=== PATIENT | female | born 1955 | race Caucasian/White ===

== ENCOUNTER 2020-10-31 12:09 | Outpatient (REF) | payer MEDICARE, SELFPAY ==
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
== END 2020-10-31 12:10 | disposition home or self-care (01) ==
LOC: HO.XRAY 12:09
PROVIDERS: Visit Provider Internal Medicine
DX: M25.511 Pain in right shoulder (principal)
CPT/HCPCS: 73030

== ENCOUNTER 2020-12-13 07:58 | Outpatient (REF) | payer MEDICARE, SELFPAY ==
--- NOTE | 2020-12-13 08:06 | MM_ITS ---
EXAMINATION: BONE DENSITOMETRY CLINICAL INDICATION: L1 vertebral fracture and right fibular fracture. COMPARISON: None (current study represents initial baseline exam). TECHNIQUE: Using a [employer] DXA System (software version: 13.1) manufactured by [employer], dual-energy x-ray absorptiometry was performed of the lumbar spine and left hip. The images are of good technical quality. Summary results are attached. FINDINGS: AP SPINE L2-L4 (excluding L1): The data of L1-L4 has been changed to exclude the L1 vertebral body, because degenerative changes at this level may cause overestimation of lumbar spine density. BMD 1.034 g/cm2, Z-score -0.5, T-score -1.4, osteopenia. LEFT FEMUR, NECK: BMD 0.790 g/cm2, Z-score -0.7, T-score -1.8, osteopenia. LEFT FEMUR, TOTAL: BMD 0.904 g/cm2, Z-score -0.1, T-score -0.8, normal. IDENTIFIED RISK FACTORS: Menopause, history of fracture (adult), family history (parental hip fracture). HISTORY OF FRACTURE: Spine, wrist. MEDICATIONS: Vitamin D. MM/XR DEXA axial skeleton IMPRESSION: 1. DIAGNOSIS: Osteopenia based on the lowest T-score value of -1.8 in the femoral neck applying World Health Organization criteria. 2. 10-YEAR FRACTURE RISK PREDICTION, FRAX: Major osteoporotic fracture (clinical spine, forearm, hip or shoulder) 17.4%. Hip fracture 1.5%. 3. Treatment Recommendations: NOF guidelines recommend consideration for treatment in postmenopausal women and men age 50 and older presenting with the following: -A hip or vertebral (clinical or morphometric) fracture. -T-score less than or equal to -2.5 at the femoral neck or spine after appropriate evaluation to exclude secondary causes. -Low bone mass at the hip or spine and a 10-year fracture probability by FRAX of greater than or equal to 3% for hip fracture or greater than or equal to 20% for major osteoporotic fracture based on the [place] adapted WHO algorithm. 4. Other Recommendations: All treatment decisions require clinical judgment and consideration of individual patient factors, including patient preferences, comorbidities, previous drug use, risk factors not captured in the FRAX model (e.g. frailty, falls, vitamin D deficiency, increased bone turnover, interval significant decline in bone density) and possible under or overestimation of fracture risk by FRAX. Additional medical evaluation for secondary cause of low bone mineral density may be appropriate. FUTURE SCAN RECOMMENDATION: People with diagnosed cases of osteoporosis or at high risk for fracture should have regular bone mineral density tests. For patients eligible for Medicare, routine testing is allowed once every 2 years. The testing frequency can be increased to one year for patients who have rapidly progressing disease, those who are receiving or discontinuing medical therapy to restore bone mass, or have additional risk factors.
== END 2020-12-13 07:59 | disposition home or self-care (01) ==
LOC: HO.MAMMO 07:58
PROVIDERS: PCP Internal Medicine; Visit Provider Internal Medicine
DX: Z13.820 Encounter for screening for osteoporosis (principal); Z78.0 Asymptomatic menopausal state; S32.019A Unspecified fracture of first lumbar vertebra, initial encounter for closed fracture; S82.401A Unspecified fracture of shaft of right fibula, initial encounter for closed fracture; X58.XXXA Exposure to other specified factors, initial encounter; Y93.9 Activity, unspecified; Y92.9 Unspecified place or not applicable; Y99.8 Other external cause status
CPT/HCPCS: 77080

== ENCOUNTER 2021-05-04 07:20 | Outpatient (REF) | payer MEDICARE, SELFPAY ==
[2021-05-04 07:53] LABS: MANUAL DIFF FLAG NO
[2021-05-04 07:58] LABS: Basophils Percent Auto 0.5 % (0-2); Eosinophils Absolute Auto 0.2 X10*3/uL (0.0-0.4); Eosinophils Percent Auto 2.7 % (0-4); Hematocrit 44.3 % (37-47); Hemoglobin 14.3 g/dl (12.0-16.0); Imm Gran Abs Auto 0.02 X10*3/uL (0.00-0.03); Imm Gran Pct Auto 0.3 % (0.0-0.4); Lymphocytes Absolute Auto 1.2 X10*3/uL (1.2-4.9); Lymphocytes Percent Auto 18.5 % (20-40); Mean Corpuscular HGB Conc 32.3 g/dl (31.0-35.0); Mean Corpuscular Hemoglobin 26.4 pg (27.0-33.0); Mean Corpuscular Volume 81.7 fL (80-98); Mean Platelet Volume 10.2 fL (9.4-12.3); Monocytes Absolute Auto 0.5 X10*3/uL (0.1-1.2); Monocytes Percent Auto 7.8 % (2-11); Neutrophils Absolute Auto 4.6 X10*3/uL (2.0-8.3); Neutrophils Percent Auto 70.2 % (45-73); Platelet Count 308 X10*3/uL (160-400); Red Blood Count 5.42 X10*6/uL (4.20-5.50); Red Cell Distribution Width 14.5 % (11.0-16.0); White Blood Count 6.6 X10*3/uL (4.8-10.8)
[2021-05-04 08:26] LABS: Alanine Aminotransferase 11 U/L (0-31); Albumin Level 4.3 g/dL (3.5-5.0); Alkaline Phosphatase 71 U/L (39-117); Anion Gap 13 (12-20); Aspartate Amino Transferase 15 U/L (5-31); Bilirubin Total 0.7 mg/dL (0.0-1.0); Blood Urea Nitrogen 11 mg/dL (9-16); Calcium 9.8 mg/dL (8.4-10.2); Carbon Dioxide 27 mmol/L (22-29); Chloride 106 mmol/L (96-108); Cholesterol 236 mg/dL; Estimated Glomerular Filt Rate > 60; Glucose Random 113 mg/dL (60-115); HDL Cholesterol 57 mg/dL; LDL Cholesterol Calculated 150 mg/dl; Potassium 4.4 mmol/L (3.3-5.1); Sodium 142 mmol/L (135-145); Total Protein 6.8 g/dL (6.5-8.0); Triglycerides 145 mg/dL
[2021-05-04 08:49] LABS: Free T4 (Free Thyroxine) 1.13 ng/dL (0.71-1.85); Thyroid Stimulating Hormone 1.63 uIU/mL (0.32-4.0); Vitamin D 25-OH Total 58.4 ng/mL (>30)
[2021-05-06 08:39] LABS: Folate 8.3 ng/mL (> or = 4.0); Vitamin B12 524 pg/mL (200-900)
== END 2021-05-04 07:21 | disposition home or self-care (01) ==
LOC: HO.LAB 07:20
PROVIDERS: PCP Internal Medicine; Visit Provider Internal Medicine
DX: E03.9 Hypothyroidism, unspecified (principal); E78.00 Pure hypercholesterolemia, unspecified
CPT/HCPCS: 36415; 80053; 80061; 82306; 82607; 82746; 84439; 84443; 85025

== ENCOUNTER 2023-04-25 07:44 | Outpatient (REF) | payer MEDICARE, SELFPAY ==
[2023-04-25 07:54] LABS: MANUAL DIFF FLAG NO
[2023-04-25 08:08] LABS: Basophils Percent Auto 0.7 % (0-2); Eosinophils Absolute Auto 0.2 X10*3/uL (0.0-0.4); Hematocrit 43.9 % (37.0-47.0); Imm Gran Abs Auto 0.02 X10*3/uL (0.00-0.03); Imm Gran Pct Auto 0.3 % (0.0-0.4); Lymphocytes Absolute Auto 1.7 X10*3/uL (1.2-4.9); Lymphocytes Percent Auto 27.8 % (20-40); Mean Corpuscular HGB Conc 31.9 g/dl (31.0-35.0); Mean Corpuscular Hemoglobin 25.8 pg (27.0-33.0); Mean Platelet Volume 9.8 fL (9.4-12.3); Monocytes Absolute Auto 0.5 X10*3/uL (0.1-1.2); Monocytes Percent Auto 8.1 % (2-11); Neutrophils Absolute Auto 3.6 x10*3/uL (2.0-8.3); Neutrophils Percent Auto 60.1 % (45-73); Platelet Count 301 X10*3/uL (160-400); Red Blood Count 5.42 X10*6/uL (4.20-5.50); Red Cell Distribution Width 14.6 % (11.0-16.0)
[2023-04-25 08:22] LABS: Estimated Average Glucose 105 mg/dL; Hemoglobin A1c % 5.3 %
[2023-04-25 08:49] LABS: Alanine Aminotransferase 17 U/L (0-31); Albumin Level 4.3 g/dL (3.5-5.0); Alkaline Phosphatase 64 U/L (39-117); Anion Gap 13 (12-20); Aspartate Amino Transferase 21 U/L (5-31); Bilirubin Total 0.7 mg/dL (0.0-1.0); Blood Urea Nitrogen 13 mg/dL (9-16); Calcium 10.2 mg/dL (8.4-10.2); Carbon Dioxide 28 mmol/L (22-29); Chloride 106 mmol/L (96-108); Cholesterol 236 mg/dL; Estimated Glomerular Filt Rate > 60; Glucose Random 106 mg/dL (60-115); HDL Cholesterol 58 mg/dL; LDL Cholesterol Calculated 148 mg/dl; Potassium 4.5 mmol/L (3.3-5.1); Sodium 142 mmol/L (135-145); Total Protein 6.7 g/dL (6.5-8.0); Triglycerides 153 mg/dL
[2023-04-25 09:19] LABS: Folate 10.3 ng/mL (> or = 4.0); Free T4 (Free Thyroxine) 1.08 ng/dL (0.71-1.85); Thyroid Stimulating Hormone 1.01 uIU/mL (0.32-4.0); Vitamin B12 497 pg/mL (200-900); Vitamin D 25-OH Total 59.5 ng/mL (>30)
== END 2023-04-25 07:45 | disposition home or self-care (01) ==
LOC: HO.LAB 07:44
PROVIDERS: PCP Internal Medicine; Visit Provider Internal Medicine
DX: E78.00 Pure hypercholesterolemia, unspecified (principal); R73.9 Hyperglycemia, unspecified; S32.009A Unspecified fracture of unspecified lumbar vertebra, initial encounter for closed fracture; X58.XXXA Exposure to other specified factors, initial encounter; Y93.9 Activity, unspecified; Y92.9 Unspecified place or not applicable; Y99.9 Unspecified external cause status
CPT/HCPCS: 36415; 80053; 80061; 82306; 82607; 82746; 83036; 84439; 84443; 85025

== ENCOUNTER 2023-04-29 08:24 | Outpatient (REF) | payer MEDICARE, SELFPAY ==
--- NOTE | ~2023-04-29 | MM_ITS ---
EXAMINATION: BONE DENSITOMETRY CLINICAL INDICATION: Age-related osteoporosis without current pathological fracture. COMPARISON: Baseline BD dated 12/13/2020. TECHNIQUE: Using a [employer] DXA System (software version: 13.1) manufactured by [employer], dual-energy x-ray absorptiometry was performed of the lumbar spine and left hip. The images are of good technical quality. Summary results are attached. FINDINGS: AP SPINE L2-L4 (excluding L1): The data of L1-L4 has been changed to exclude the L1 vertebral body, because degenerative changes at this level may cause overestimation of lumbar spine density. Current: BMD 1.012 g/cm2, Z-score -0.7, T-score -1.6, osteopenia, 2.1% decrease from baseline (<5% change is not significant). Baseline: BMD 1.034 g/cm2. LEFT FEMUR, NECK: Current: BMD 0.803 g/cm2, Z-score -0.6, T-score -1.7, osteopenia. Baseline: BMD 0.790 g/cm2. LEFT FEMUR, TOTAL: Current: BMD 0.804 g/cm2, Z-score -0.8, T-score -1.6, osteopenia, 11.1% decrease from baseline (<5% change is not significant). Baseline: BMD 0.904 g/cm2. IDENTIFIED RISK FACTORS: Menopause, hysterectomy, bilateral oophorectomy, history of fracture (adult). HISTORY OF FRACTURE: Wrist; Lower leg MEDICATIONS: Vitamin D. MM/XR DEXA axial skeleton IMPRESSION: 1. DIAGNOSIS: Osteopenia based on the lowest T-score value of -1.7 in the femoral neck applying World Health Organization criteria. 2. 10-YEAR FRACTURE RISK PREDICTION, FRAX: Major osteoporotic fracture (clinical spine, forearm, hip or shoulder) 15.5%. Hip fracture 2.2%. 3. Treatment Recommendations: NOF guidelines recommend consideration for treatment in postmenopausal women and men age 50 and older presenting with the following: -A hip or vertebral (clinical or morphometric) fracture. -T-score less than or equal to -2.5 at the femoral neck or spine after appropriate evaluation to exclude secondary causes. -Low bone mass at the hip or spine and a 10-year fracture probability by FRAX of greater than or equal to 3% for hip fracture or greater than or equal to 20% for major osteoporotic fracture based on the [place] adapted WHO algorithm. 4. Other Recommendations: All treatment decisions require clinical judgment and consideration of individual patient factors, including patient preferences, comorbidities, previous drug use, risk factors not captured in the FRAX model (e.g. frailty, falls, vitamin D deficiency, increased bone turnover, interval significant decline in bone density) and possible under or overestimation of fracture risk by FRAX. Additional medical evaluation for secondary cause of low bone mineral density may be appropriate. FUTURE SCAN RECOMMENDATION: People with diagnosed cases of osteoporosis or at high risk for fracture should have regular bone mineral density tests. For patients eligible for Medicare, routine testing is allowed once every 2 years. The testing frequency can be increased to one year for patients who have rapidly progressing disease, those who are receiving or discontinuing medical therapy to restore bone mass, or have additional risk factors.
== END 2023-04-29 08:25 | disposition home or self-care (01) ==
LOC: HO.MAMMO 08:24
PROVIDERS: PCP Internal Medicine; Visit Provider Internal Medicine
DX: Z13.820 Encounter for screening for osteoporosis (principal); M81.0 Age-related osteoporosis without current pathological fracture; M85.88 Other specified disorders of bone density and structure, other site; Z78.0 Asymptomatic menopausal state
CPT/HCPCS: 77080

== ENCOUNTER 2023-08-17 09:15 | Outpatient (AMB) | payer MEDICARE, SELFPAY ==
[2023-08-17 09:17] VITALS: BP 134/78; PULSE 61; O2SAT 99; BMI 33.3
--- NOTE | 2023-08-17 09:17 | MHC.PC.OV ---
Vital Signs 08/17/23 09:17 Height 5 ft 4 in Weight 194 lb BMI 33.3 BP 134/78 Blood Pressure Location Lt brachial Position Sitting Pulse 61 Pulse Source Pulse Oximeter Temp Source Skin Pulse Oximetry (%) 99 Oxygen Delivery Method Room Air Intake Visit Reasons: hypothyroid Steam Drier Tender Required: No Allergies diclofenac Allergy (Unknown, Verified 08/17/23 09:17) Unknown Sulfa (Sulfonamide Antibiotics) [SULFA (SULFONAMIDE ANTIBIOTICS)] Allergy (Unknown, Verified 08/17/23 09:17) RASH peanut [PEANUT] Adverse Reaction (Intermediate, Verified 08/17/23 09:17) NAUSEA Tobacco use date assessed: 08/17/23 Fall risk assessment: No Falls in past year Last assessed Fall Risk: 08/17/23 Dental Screening Dental Screen Date: 08/17/23 Did you have a dental visit in the last 12 months?: Yes Did you have a dental problem in the last 6 months where you did not have access to dental care?: No Was dental information given to patient?: Patient has dentist HPI hypothyroid HPI Details 67-year-old obese female with hypertension, hypothyroidism history of breast cancer GERD hypercholesterolemia osteopenia and generalized anxiety disorder last seen in April 2023. Patient has a mammogram due. 2 weeks of pain R upper back , no rash , deny cough radiates to the R front. [facility] Medical History (Updated 08/17/23 @ 09:42 by Sky oN MD) Colon cancer screening Endometrioma Knee pain, left Shoulder pain, right Depression Peripheral vascular disease Hypercholesterolemia GERD (gastroesophageal reflux disease) Obesity (BMI 30-39.9) History of breast cancer Back pain Hospital discharge follow-up Hypothyroidism Hypertension Surgical History History of total knee arthroplasty History of laparoscopic cholecystectomy H/O right wrist surgery Family History (Updated 04/23/23 @ 15:31 by ALEXANDER Wynne) Father CVD (cardiovascular disease) Diabetes Mother Diabetes Hypertension Breast cancer Maternal Grandmother Breast cancer [facility] Alcohol intake: current Alcohol intake frequency: a few times a month Patient Tobacco Use Status: Never used Tobacco e-Cigarette/Vaping Use: Never Used Second Hand Smoke Exposure: Yes service: No Current occupational status: retired 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 How often do you have a drink containing alcohol?: Monthly or less 2. How many drinks containing alcohol do you have on a typical day when you are drinking?: 1 or 2 Total Score: 1 ANNA-7 AMB Questionnaire ANNA-7 Date ANNA - 7 assessed: 04/23/23 Source: Developed by Drs. Brett Nunez, Jemma Winn, Ryan Nielsen and colleagues, with an educational aman from [employer]. Physical exam (Primary Care) Vital Signs: Last Vital Signs Pulse 61 08/17/23 09:17 BP 134/78 08/17/23 09:17 Pulse Ox 99 08/17/23 09:17 Oxygen Delivery Method Room Air 08/17/23 09:17 BMI result Body Mass Index 33.3 Tobacco/Smoking Status: Tobacco use Status Tobacco use date assessed 08/17/23 08/17/23 09:18 Patient Tobacco Use Status Never used Tobacco 08/17/23 09:18 e-Cigarette/Vaping Use Never Used 08/17/23 09:18 Thrive Assessment: Date of Thrive Assessment Date Thrive assessed 04/23/23 08/17/23 09:18 Const General: alert; No acute distress Eyes Conjunctivae: conjunctivae normal Resp Auscultation: clear to auscultation bilaterally Cardio Rate: regular rate Rhythm: regular rhythm GI Inspection: Yes normal to inspection Extrem General: Yes normal to inspection and No edema Office Procedures Flu Questionnaire Does the patient have a severe egg allergy?: No Does the patient have severe life threatening allergies?: No Does the patient have a fever or illness today?: No Has the patient ever had Guillain-Beaumont Syndrome?: No Has the patient ever had any past reaction to a flu shot?: No Immunizations flu vacc [id number] 6mos up(PF) 60 mcg(15 mcgx4)/0.5 mL IM syringe Performing Provider: Sky No MD [facility] Documented (not given) by: ALEXANDER Mcrae on 08/17/23 09:23 Reason Not Given: Patient Refused Assessment and Plan Assessment & Plan (1) Osteopenia: Comment: Bone density done November 2020, April 2023 Code(s): M85.80 - Other specified disorders of bone density and structure, unspecified site Qualifiers: Osteopenia location: spine Qualified Code(s): M85.88 - Other specified disorders of bone density and structure, other site Plan: Patient is up-to-date with bone density. Discussed about calcium vitamin-D and medication treatment to help with bones (2) Hypercholesterolemia: Code(s): E78.00 - Pure hypercholesterolemia, unspecified Plan: Avoid fried foods, chicken skin, eggs, butter margarine, pastries and meat. Be it pork or beef they have a lot of cholesterol April 2023 last blood work (3) GERD (gastroesophageal reflux disease): Code(s): K21.9 - Gastro-esophageal reflux disease without esophagitis Qualifiers: Esophagitis presence: without esophagitis Qualified Code(s): K21.9 - Gastro-esophageal reflux disease without esophagitis Plan: Avoid the foods that causes that usually spicy foods, tomato products, juices, coffee, soda and foods that your sensitive to. After eating do not lie down, allow 3-4 hours before in lie down. And keep the head of bed above 30 degrees to avoid the acid from going up. (4) Obesity (BMI 30-39.9): Code(s): E66.9 - Obesity, unspecified Plan: Diet and exercise (5) History of breast cancer: Comment: Status post lumpectomy and right 2011, chemotherapy and radiation Dr. Castle surgeon and Dr. Haro May 2016 Code(s): Z85.3 - Personal history of malignant neoplasm of breast Plan: Patient seen mind about the mammogram (6) Hypothyroidism: Code(s): E03.9 - Hypothyroidism, unspecified Qualifiers: Hypothyroidism type: acquired Qualified Code(s): E03.9 - Hypothyroidism, unspecified Plan: Continue with thyroid medication April 2023 last blood work (7) Hypertension: Code(s): I10 - Essential (primary) hypertension Qualifiers: Hypertension type: essential hypertension Qualified Code(s): I10 - Essential (primary) hypertension Plan: Continue with blood pressure medication. Decrease salt intake and exercise continue with losartan 50 mg once a day (8) Colon cancer screening: Code(s): Z12.11 - Encounter for screening for malignant neoplasm of colon (9) Upper back pain on right side: Code(s): M54.9 - Dorsalgia, unspecified Orders: Orders XR chest 2V Today M54.9 - Dorsalgia, unspecified Thyroid Stimulating Hormone Today E03.9 - Hypothyroidism, unspecified Comprehensive Met. Panel Today E03.9 - Hypothyroidism, unspecified Complete Blood Count Auto Diff Today E03.9 - Hypothyroidism, unspecified Vitamin B12 and Folate Today E03.9 - Hypothyroidism, unspecified Vitamin D 25-OH Total Today E03.9 - Hypothyroidism, unspecified Influenza [id number] Immunization Today Z23 - Encounter for immunization Free T4 (Free Thyroxine) Today E03.9 - Hypothyroidism, unspecified Lipid Panel Today E03.9 - Hypothyroidism, unspecified, E78.00 - Pure hypercholesterolemia, unspecified Referrals Cologuard Test Z12.11 - Encounter for screening for malignant neoplasm of colon Coding Level of Care Code Est Pt Level 4 (86613) Diagnoses Osteopenia of spine M85.88 Osteopenia location: spine Hypercholesterolemia E78.00 Gastroesophageal reflux disease without esophagitis K21.9 Esophagitis presence: without esophagitis Obesity (BMI 30-39.9) E66.9 History of breast cancer Z85.3 Acquired hypothyroidism E03.9 Hypothyroidism type: acquired Essential hypertension I10 Hypertension type: essential hypertension Colon cancer screening Z12.11 Upper back pain on right side M54.9
== END 2023-08-17 09:51 | disposition home or self-care (01) ==
PROVIDERS: PCP Internal Medicine; Visit Provider Internal Medicine
DX: M85.88 Other specified disorders of bone density and structure, other site (principal); E78.00 Pure hypercholesterolemia, unspecified; K21.9 Gastro-esophageal reflux disease without esophagitis; Z85.3 Personal history of malignant neoplasm of breast
CPT/HCPCS: 99214

== ENCOUNTER 2023-08-17 09:57 | Outpatient (REF) | payer MEDICARE, SELFPAY ==
--- NOTE | ~2023-08-17 | XR_ITS ---
EXAMINATION: XR CHEST CLINICAL INFORMATION: Reason for Exam M54.9 - Dorsalgia, unspecified COMPARISON: Chest radiograph 10/25/2015 TECHNIQUE: 2 views of the chest FINDINGS: Lines and tubes: Surgical clips overlie the right hemithorax. Upper abdominal surgical clips. Clear lungs. No pleural effusion. No pneumothorax. Unchanged cardiomediastinal silhouette. XR/XR chest 2V IMPRESSION: * Clear lungs.
== END 2023-08-17 09:58 | disposition home or self-care (01) ==
LOC: HO.XRAY 09:57
PROVIDERS: PCP Internal Medicine; Visit Provider Internal Medicine
DX: M54.9 Dorsalgia, unspecified (principal)
CPT/HCPCS: 71046

== ENCOUNTER 2023-11-26 10:35 | Outpatient (AMB) | payer MEDICARE, SELFPAY ==
[2023-11-26 10:36] VITALS: BP 148/80; PULSE 64; O2SAT 99; BMI 34.2
--- NOTE | 2023-11-26 10:36 | A.OFFPC_ITS ---
Vital Signs 11/26/23 10:36 Height 5 ft 4 in Weight 199 lb BMI 34.2 BP 148/80 H Blood Pressure Location Lt brachial Position Sitting Pulse 64 Pulse Source Pulse Oximeter Pulse Oximetry (%) 99 Oxygen Delivery Method Room Air Intake Visit Reasons: upper back pain Network Control Technician Required: No Allergies diclofenac Allergy (Unknown, Verified 11/26/23 10:42) Unknown Sulfa (Sulfonamide Antibiotics) [SULFA (SULFONAMIDE ANTIBIOTICS)] Allergy (Unknown, Verified 11/26/23 10:42) RASH peanut [PEANUT] Adverse Reaction (Intermediate, Verified 11/26/23 10:42) NAUSEA Tobacco use date assessed: 11/26/23 Fall risk assessment: No Falls in past year Last assessed Fall Risk: 11/26/23 HPI upper back pain HPI Details 68-year-old obese female with hyperchole sterolemia GERD history of breast cancer hypothyroidism hypertension last seen in August 2023. Patient's Cologuard is up-to-date mammogram is up-to-date bone density up-to-date. Patient follows up with Dermatology for the hair loss placed on placed on spironolactone. decline med. [facility] Medical History (Updated 11/26/23 @ 11:11 by Sky No MD) Colon cancer screening Endometrioma Knee pain, left Shoulder pain, right Depression Peripheral vascular disease Hypercholesterolemia GERD (gastroesophageal reflux disease) Obesity (BMI 30-39.9) History of breast cancer Back pain Hospital discharge follow-up Hypothyroidism Hypertension Surgical History History of total knee arthroplasty History of laparoscopic cholecystectomy H/O right wrist surgery Family History (Updated 04/23/23 @ 15:31 by ALEXANDER Wynne) Father CVD (cardiovascular disease) Diabetes Mother Diabetes Hypertension Breast cancer Maternal Grandmother Breast cancer Social History Housing: Condominium Alcohol intake: current Alcohol intake frequency: a few times a month Patient Tobacco Use Status: Never used Tobacco e-Cigarette/Vaping Use: Never Used Second Hand Smoke Exposure: Yes service: No Current occupational status: retired 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 1. Little interest or pleasure in doing things: not at all 2. Feeling down, depressed, or hopeless: not at all 3. Trouble falling or staying asleep, or sleeping too much: not at all 4. Feeling tired or having little energy: not at all 5. Poor appetite or overeating: not at all 6. Feeling bad about yourself - or that you are a failure or have let yourself or your family down: not at all 7. Trouble concentrating on things, such as reading the newspaper or watching television: not at all 8. Moving or speaking so slowly that other people could have noticed. Or the opposite - being so fidgety or restless that you have been moving around a lot more than usual: not at all 9. Thoughts that you would be better off or of hurting yourself in some way: not at all Total score: 0 Depression Screening Interpretation: Negative Depression Screening Done: Yes Source: Developed by Drs. Brett Nunez, Jemma Winn, Ryan Nielsen and colleagues, with an educational aman from [employer]. Thrive Questionnaire Date Thrive assessed: 11/26/23 I am a: Patient What is your living situation today?: I have a steady place to live Within the past 12 months, did the food you bought not last and you didn't have the money to get more?: Never true Within the past 12 months, did you worry whether your food would run out before you got money to buy more?: Never true Do you have trouble paying for medicines?: No Do you have trouble getting transportation to medical appointments?: No Do you have trouble paying your heating and electricity bill?: No Do you have trouble taking care of your child, family member or friend?: No Do you have trouble with day-to-day activities such as bathing, preparing meals, shopping, managing finances, etc.?: No Are you currently unemployed and looking for a job?: No Are you interested in more education?: No AUDIT C Alcohol Use Questionnaire (AUDIT-C) 1. How often do you have a drink containing alcohol?: Monthly or less 2. How many drinks containing alcohol do you have on a typical day when you are drinking?: 1 or 2 3. How often do you have six or more drinks on one occasion?: Never Total Score: 1 ANNA-7 AMB Questionnaire ANNA-7 Date ANNA - 7 assessed: 11/26/23 Feeling nervous, anxious, or on edge: 0 = Not at all Not being able to stop or control worryin = Not at all Worrying too much about different things: 0 = Not at all Trouble relaxin = Not at all Being so restless that it is hard to sit still: 0 = Not at all Becoming easily annoyed or irritable: 0 = Not at all Feeling afraid as if something awful might happen: 0 = Not at all Total ANNA-7 score (0-4 normal; 5-9 mild; 10-14 moderate; 15-21 severe): 0 Source: Developed by Drs. Brett Nunez, Jemma Winn, Ryan Nielsen and colleagues, with an educational aman from [employer]. Physical exam (Primary Care) Vital Signs: Last Vital Signs Pulse 64 11/26/23 10:36 BP 148/80 H 11/26/23 10:36 Pulse Ox 99 11/26/23 10:36 Oxygen Delivery Method Room Air 11/26/23 10:36 BMI result Body Mass Index 34.2 Tobacco/Smoking Status: Tobacco use Status Tobacco use date assessed 11/26/23 11/26/23 10:38 Patient Tobacco Use Status Never used Tobacco 11/26/23 10:38 e-Cigarette/Vaping Use Never Used 11/26/23 10:38 PHQ-9: PHQ-9 Score PHQ-9: Total score 0 11/26/23 10:38 Depression Screening Interpretation: Negative Thrive Assessment: Date of Thrive Assessment Date Thrive assessed 11/26/23 11/26/23 10:38 Const General: alert; No acute distress Eyes Conjunctivae: conjunctivae normal Resp Auscultation: clear to auscultation bilaterally Cardio Rate: regular rate Rhythm: regular rhythm GI Inspection: Yes normal to inspection Extrem General: Yes normal to inspection and No edema Assessment and Plan Assessment & Plan (1) History of breast cancer: Comment: Status post lumpectomy and right 2011, chemotherapy and radiation Dr. Castle surgeon and Dr. Haro May 2016 Code(s): Z85.3 - Personal history of malignant neoplasm of breast Plan: Patient is up-to-date with mammogram (2) Obesity (BMI 30-39.9): Code(s): E66.9 - Obesity, unspecified Plan: Diet and exercise (3) GERD (gastroesophageal reflux disease): Code(s): K21.9 - Gastro-esophageal reflux disease without esophagitis Qualifiers: Esophagitis presence: without esophagitis Qualified Code(s): K21.9 - Gastro-esophageal reflux disease without esophagitis Plan: Avoid the foods that causes that usually spicy foods, tomato products, juices, coffee, soda and foods that your sensitive to. After eating do not lie down, allow 3-4 hours before in lie down. And keep the head of bed above 30 degrees to avoid the acid from going up. Coding Level of Care Code Est Pt Level 4 (10925) Diagnoses History of breast cancer Z85.3 Obesity (BMI 30-39.9) E66.9 Gastroesophageal reflux disease without esophagitis K21.9 Esophagitis presence: without esophagitis
== END 2023-11-26 11:22 | disposition home or self-care (01) ==
PROVIDERS: PCP Internal Medicine; Visit Provider Internal Medicine
DX: K21.9 Gastro-esophageal reflux disease without esophagitis (principal); Z85.3 Personal history of malignant neoplasm of breast; E66.9 Obesity, unspecified; Z68.34 Body mass index [BMI] 34.0-34.9, adult
CPT/HCPCS: 99214

== ENCOUNTER 2024-03-29 11:18 | Outpatient (AMB) | payer MEDICARE, SELFPAY ==
[2024-03-29 11:19] VITALS: BP 112/66; PULSE 56; O2SAT 99; BMI 32.6
--- NOTE | 2024-03-29 11:19 | AM.OFFVISMDC ---
Intake Vital Signs 03/29/24 11:19 Height 5 ft 4 in Weight 190 lb BMI 32.6 BP 112/66 Blood Pressure Location Lt brachial Position Sitting Pulse 56 Pulse Source Pulse Oximeter Pulse Oximetry (%) 99 Oxygen Delivery Method Room Air Intake Visit Reasons: sawv Intake Note: Patient is here for an Annual Wellness Visit. Search Marketing Specialist Required: No Allergies diclofenac Allergy (Unknown, Verified 03/29/24 11:19) Unknown Sulfa (Sulfonamide Antibiotics) [SULFA (SULFONAMIDE ANTIBIOTICS)] Allergy (Unknown, Verified 03/29/24 11:19) RASH peanut [PEANUT] Adverse Reaction (Intermediate, Verified 03/29/24 11:19) NAUSEA Medication List - Last Reconciled 03/29/24 by Sky No MD alprazolam 0.25 mg PO DAILY losartan 50 mg PO DAILY 90 days omeprazole 20 mg PO DAILY Synthroid (levothyroxine) 75 mcg PO QAM NS tizanidine 2 mg PO BEDTIME PRN HPI sawv HPI Details 68-year-old obese female(noted 9 lb weight loss) with a history of breast cancer and GERD coming in for an annual well visit last seen in November 2023. Cologuard testing August 2023 up-to-date mammogram is up-to-date in June 2023 bone density is up-to-date with April 2023. Dermatology evaluation seen in December 2023 with alopecia [facility] Medical History (Updated 03/29/24 @ 11:40 by Sky No MD) Colon cancer screening Endometrioma Knee pain, left Shoulder pain, right Depression Peripheral vascular disease Hypercholesterolemia GERD (gastroesophageal reflux disease) Obesity (BMI 30-39.9) History of breast cancer Back pain Hospital discharge follow-up Hypothyroidism Hypertension Surgical History History of total knee arthroplasty History of laparoscopic cholecystectomy H/O right wrist surgery Family History (Updated 04/23/23 @ 15:31 by ALEXANDER Wynne) Father CVD (cardiovascular disease) Diabetes Mother Diabetes Hypertension Breast cancer Maternal Grandmother Breast cancer Social History (Updated 03/29/24 @ 11:52 by Sky No MD) Housing: [facility] Alcohol intake: current Alcohol intake frequency: a few times a month Comment: 1-2 x a year 1 drink Patient Tobacco Use Status: Never used Tobacco e-Cigarette/Vaping Use: Never Used Second Hand Smoke Exposure: Yes service: No Current occupational status: retired 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 Cognitive needs: No Hearing needs: No Vision needs: Yes Questionnaire Medicare Wellness Checkup What [age] your age?: 65-69 (68) What gender do you identify with?: female During the past 4 weeks, how much have you been bothered by emotional problems such as feeling anxious, depressed, irritable, sad or downhearted, and blue?: not at all During the past 4 weeks, has your physical & emotional health limited your social activities with family, friends, neighbors, or groups?: not at all During the past 4 weeks, how much bodily pain have you generally had?: no pain During the past 4 weeks, was someone available to help you if you needed & wanted help?: yes, as much as I wanted During the past 4 weeks, what was the hardest physical activity you could do for at least 2 minutes?: heavy Can you get to places out of walking distance without help? (For eg., can you travel alone on buses, taxis or drive your car?): Yes Can you go shopping for groceries or clothes without someone's help?: Yes Can you prepare your own meals?: Yes Can you do your housework without help?: Yes Because of any health problems, do you need the help of another person with your personal care needs such as eating, bathing, dressing or getting around the house?: No Can you handle your own money without help?: Yes During the past 4 weeks, how would you rate your health in general?: good During the past 4 weeks how have things been going for you?: pretty well Are you having difficulties driving your car?: sometimes Do you always fasten your seat belt when you are in a car?: yes, usually During past 4 weeks, have you been bothered by the following: never: Falling or dizzy when standing up, Sexual problems?, Trouble eating well?, Teeth or denture problems? and Problems using the telephone? and sometimes: Tiredness or fatigue? Have you fallen 2 or more times in the past year?: No Are you afraid of falling?: No Are you a smoker?: no During the past 4 weeks, how many drinks of wine, beer, or other alcoholic beverages did you have?: no alcohol at all Do you exercise for about 20 minutes 3 or more times a week?: yes, some of the time How often do you have trouble taking medicines the way you have been told to take them?: I always take medicine as prescribed How confident are you that you can control & manage most of your health problems?: very confident What is your race?: White PHQ-9 Over the last 2 weeks, how often have you been bothered by any of the following problems? 1. Little interest or pleasure in doing things: not at all 2. Feeling down, depressed, or hopeless: not at all 3. Trouble falling or staying asleep, or sleeping too much: more than half the days 4. Feeling tired or having little energy: several days 5. Poor appetite or overeating: not at all 6. Feeling bad about yourself - or that you are a failure or have let yourself or your family down: not at all 7. Trouble concentrating on things, such as reading the newspaper or watching television: not at all 8. Moving or speaking so slowly that other people could have noticed. Or the opposite - being so fidgety or restless that you have been moving around a lot more than usual: not at all 9. Thoughts that you would be better off or of hurting yourself in some way: not at all Total score: 3 Depression Screening Interpretation: Positive Depression Screening Done: Yes 50619 - PHQ-9 Billing: Yes Source: Developed by Drs. Brett Nunez, Jemma Winn, Ryan Nielsen and colleagues, with an educational aman from [employer]. Review of Systems Const Denies poor appetite and Denies weakness Eyes Denies no additional complaints ENT Reports Normal hearing present, Denies dizziness, Denies nasal congestion, Denies tinnitus and Denies sore throat Card Denies chest pain, Denies syncope, Denies rapid heart rate and Denies dyspnea Resp Denies cough and Denies dyspnea GI Denies change in stool character, Reports constipation, Denies diarrhea, Denies nausea and Denies vomiting Denies urinary frequency, Denies difficulty voiding and Denies dysuria Neuro Reports Normal hearing present, Denies confusion, Denies dizziness, Denies syncope and Denies weakness Psych Denies confusion Physical Exam Vital Signs: Last Vital Signs Pulse 56 05/24 11:19 BP 112/66 03/29/24 11:19 Pulse Ox 99 03/29/24 11:19 Oxygen Delivery Method Room Air 03/29/24 11:19 BMI result Body Mass Index 32.6 Const General: No confusion Orientation/consciousness: No confusion HEENT Head: Yes normocephalic Ears: external ears normal and TM's normal bilaterally Face and sinus: Yes normal facial exam Mouth: moist mucous membranes Throat: Yes tonsils normal Eyes Conjunctivae: conjunctivae normal Pupils: Equal, round and reactive pupils present and Pupil accommodation reflex normal Direct Ophthalmoscopy: normal light reflex Neck Neck: No lymphadenopathy Thyroid: Thyroid normal Chest Chest palpation & inspection: normal inspection of the chest Resp Effort & Inspection: normal respiratory effort and no audible wheezes Auscultation: clear to auscultation bilaterally, no crackles, no wheezes and lung sounds not diminished Cardio Rate: regular rate Rhythm: regular rhythm Peripheral pulses: radial pulses present and dorsalis pedis present GI Palpation (GI): no masses Auscultation: normal bowel sounds and normoactive bowel sounds Rectal Exam - Female: deferred Skin General skin exam: no rashes or lesions noted Rashes: no rashes Neuro General: No confusion Cranial nerves: Yes Equal, round and reactive pupils present and Yes Normal hearing present Cognition (Neuro): normal cognition Gait exam (Neuro): Normal gait present Motor exam (neuro): 5/5 motor strength present throughout Deep tendon reflexes (DTR's): Right brachioradialis reflex intensity grade: 2+, Left brachioradialis reflex intensity grade: 2+, Right patellar reflex intensity grade: 2+ and Left patellar reflex intensity grade: 2+ Extrem General: No edema Assessment & Plan Assessment & Plan (1) Medicare annual wellness visit, subsequent: Code(s): Z00.00 - Encounter for general adult medical examination without abnormal findings Plan: Patient is advised to eat healthy, keep well hydrated, keep active and have adequate sleep. (2) Obesity (BMI 30-39.9): Code(s): E66.9 - Obesity, unspecified Plan: Diet and exercise (3) GERD (gastroesophageal reflux disease): Code(s): K21.9 - Gastro-esophageal reflux disease without esophagitis Qualifiers: Esophagitis presence: without esophagitis Qualified Code(s): K21.9 - Gastro-esophageal reflux disease without esophagitis Plan: Avoid the foods that causes that usually spicy foods, tomato products, juices, coffee, soda and foods that your sensitive to. After eating do not lie down, allow 3-4 hours before in lie down. And keep the head of bed above 30 degrees to avoid the acid from going up. (4) Hypercholesterolemia: Code(s): E78.00 - Pure hypercholesterolemia, unspecified Plan: Avoid fried foods, chicken skin, eggs, butter margarine, pastries and meat. Be it pork or beef they have a lot of cholesterol LDL goal of less than 130 and triglyceride of less than 150. Repeat blood work requested (5) History of breast cancer: Comment: Status post lumpectomy and right 2011, chemotherapy and radiation Dr. Castle surgeon and Dr. Haro May 2016 Code(s): Z85.3 - Personal history of malignant neoplasm of breast Plan: Patient is up-to-date with mammogram June 2023 (6) Hypothyroidism: Code(s): E03.9 - Hypothyroidism, unspecified Qualifiers: Hypothyroidism type: acquired Qualified Code(s): E03.9 - Hypothyroidism, unspecified Plan: Continue with thyroid medication and blood work requested. (7) Hypertension: Code(s): I10 - Essential (primary) hypertension Qualifiers: Hypertension type: essential hypertension Qualified Code(s): I10 - Essential (primary) hypertension Plan: Continue with blood pressure medication. Decrease salt intake and exercise patient takes losartan 50 mg once a day. I got a high BP 174/80 (8) Anxiety: Comment: decline counselling for now Code(s): F41.9 - Anxiety disorder, unspecified Plan: Continue with present medication Medications: Refilled losartan 50 mg PO DAILY 90 tabs 3RF 90 days Synthroid (levothyroxine) 75 mcg PO QAM 90 tabs 2RF NS Quality Reporting (2019) Depression/Bipolar (159/160/161/177) PHQ-9: Total score: 3 Coding Level of Care Code Medicare Subsequent (G0439) Diagnoses Medicare annual wellness visit, subsequent Z00.00 Obesity (BMI 30-39.9) E66.9 Gastroesophageal reflux disease without esophagitis K21.9 Esophagitis presence: without esophagitis Hypercholesterolemia E78.00 History of breast cancer Z85.3 Acquired hypothyroidism E03.9 Hypothyroidism type: acquired Essential hypertension I10 Hypertension type: essential hypertension Anxiety F41.9
== END 2024-03-29 12:10 | disposition home or self-care (01) ==
PROVIDERS: PCP Internal Medicine; Visit Provider Internal Medicine
DX: Z00.00 Encounter for general adult medical examination without abnormal findings (principal); E66.9 Obesity, unspecified; K21.9 Gastro-esophageal reflux disease without esophagitis; Z68.32 Body mass index [BMI] 32.0-32.9, adult; E78.00 Pure hypercholesterolemia, unspecified; Z85.3 Personal history of malignant neoplasm of breast; E03.9 Hypothyroidism, unspecified; I10 Essential (primary) hypertension; F41.9 Anxiety disorder, unspecified
CPT/HCPCS: G0439

== ENCOUNTER 2024-03-31 07:23 | Outpatient (REF) | payer MEDICARE, SELFPAY ==
[2024-03-31 07:36] LABS: MANUAL DIFF FLAG NO
[2024-03-31 07:45] LABS: Basophils Percent Auto 0.5 % (0-2); Eosinophils Absolute Auto 0.2 X10*3/uL (0.0-0.4); Eosinophils Percent Auto 2.6 % (0-4); Hematocrit 42.9 % (37.0-47.0); Hemoglobin 13.8 g/dl (12.0-16.0); Imm Gran Abs Auto 0.04 X10*3/uL (0.00-0.03); Imm Gran Pct Auto 0.7 % (0.0-0.4); Lymphocytes Absolute Auto 1.7 X10*3/uL (1.2-4.9); Lymphocytes Percent Auto 28.6 % (20-40); Mean Corpuscular HGB Conc 32.2 g/dl (31.0-35.0); Mean Corpuscular Hemoglobin 26.5 pg (27.0-33.0); Mean Corpuscular Volume 82.5 fL (80.0-98.0); Mean Platelet Volume 9.7 fL (9.4-12.3); Monocytes Absolute Auto 0.5 X10*3/uL (0.1-1.2); Monocytes Percent Auto 7.8 % (2-11); Neutrophils Absolute Auto 3.5 x10*3/uL (2.0-8.3); Neutrophils Percent Auto 59.8 % (45-73); Platelet Count 274 X10*3/uL (160-400); Red Cell Distribution Width 15.1 % (11.0-16.0); White Blood Count 5.8 X10*3/uL (4.8-10.8)
[2024-03-31 08:27] LABS: Alanine Aminotransferase 12 U/L (0-31); Alkaline Phosphatase 63 U/L (39-117); Anion Gap 13 (12-20); Aspartate Amino Transferase 15 U/L (5-31); Bilirubin Total 0.8 mg/dL (0.0-1.0); Blood Urea Nitrogen 13 mg/dL (9-16); Calcium 9.7 mg/dL (8.4-10.2); Carbon Dioxide 28 mmol/L (22-29); Chloride 105 mmol/L (96-108); Cholesterol 219 mg/dL (<200); Estimated Glomerular Filt Rate > 60; Glucose Random 89 mg/dL (60-115); HDL Cholesterol 63 mg/dL (>40); LDL Cholesterol Calculated 139 mg/dL (<100); Potassium 4.2 mmol/L (3.3-5.1); Sodium 142 mmol/L (135-145); Total Protein 6.5 g/dL (6.5-8.0); Triglycerides 88 mg/dL (<150)
[2024-03-31 08:50] LABS: Folate 8.2 ng/mL (> or = 4.0); Vitamin B12 455 pg/mL (200-900)
[2024-03-31 08:54] LABS: Free T4 (Free Thyroxine) 1.02 ng/dL (0.71-1.85); Thyroid Stimulating Hormone 2.72 uIU/mL (0.32-4.0); Vitamin D 25-OH Total 48.5 ng/mL (>30)
== END 2024-03-31 07:24 | disposition home or self-care (01) ==
LOC: HO.LAB 07:23
PROVIDERS: PCP Internal Medicine; Visit Provider Internal Medicine
DX: E03.9 Hypothyroidism, unspecified (principal); E78.00 Pure hypercholesterolemia, unspecified
CPT/HCPCS: 36415; 80053; 80061; 82306; 82607; 82746; 84439; 84443; 85025

== ENCOUNTER 2024-06-07 09:28 | Outpatient (AMB) | payer MEDICARE, SELFPAY ==
[2024-06-07 09:35] VITALS: BP 152/92; PULSE 69; O2SAT 97; BMI 33.3
--- NOTE | 2024-06-07 09:35 | A.OFFPC_ITS ---
Vital Signs 06/07/24 09:35 Height 5 ft 4 in Weight 194 lb BMI 33.3 BP 152/92 H Blood Pressure Location Lt brachial Position Sitting Pulse 69 Pulse Source Pulse Oximeter Pulse Oximetry (%) 97 Oxygen Delivery Method Room Air Intake Visit Reasons: Hypertension Allergies diclofenac Allergy (Unknown, Verified 06/07/24 09:35) Unknown Sulfa (Sulfonamide Antibiotics) [SULFA (SULFONAMIDE ANTIBIOTICS)] Allergy (Unknown, Verified 06/07/24 09:35) RASH peanut [PEANUT] Adverse Reaction (Intermediate, Verified 06/07/24 09:35) NAUSEA Tobacco use date assessed: 11/26/23 Fall risk assessment: 1 Fall in past year (Dog pulled her down during a walk) Last assessed Fall Risk: 06/07/24 Dental Screening Dental Screen Date: 06/07/24 Did you have a dental visit in the last 12 months?: Yes Did you have a dental problem in the last 6 months where you did not have access to dental care?: No Was dental information given to patient?: Patient has dentist HPI Hypertension HPI Details 68-year-old obese female with GERD hyper cholesterolemia hypothyroidism hypertension patient has a history of breast cancer also patient comes in for follow-up. Last seen in March 2024 for wellness visit. Patient's colonoscopy is up-to-date mammogram 07/05/2023 bone density 05/05/2023. BP is good at home [facility] Medical History (Updated 03/29/24 @ 11:40 by Sky No MD) Colon cancer screening Endometrioma Knee pain, left Shoulder pain, right Depression Peripheral vascular disease Hypercholesterolemia GERD (gastroesophageal reflux disease) Obesity (BMI 30-39.9) History of breast cancer Back pain Hospital discharge follow-up Hypothyroidism Hypertension Surgical History History of total knee arthroplasty History of laparoscopic cholecystectomy H/O right wrist surgery Family History (Updated 04/23/23 @ 15:31 by ALEXANDER Wynne) Father CVD (cardiovascular disease) Diabetes Mother Diabetes Hypertension Breast cancer Maternal Grandmother Breast cancer Social History (Updated 03/29/24 @ 11:52 by Sky No MD) [facility] Alcohol intake: current Alcohol intake frequency: a few times a month Comment: 1-2 x a year 1 drink Patient Tobacco Use Status: Never used Tobacco Tobacco use type: Cigarette e-Cigarette/Vaping Use: Never Used Second Hand Smoke Exposure: Yes service: No Current occupational status: retired 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 1. Little interest or pleasure in doing things: not at all 2. Feeling down, depressed, or hopeless: not at all 3. Trouble falling or staying asleep, or sleeping too much: more than half the days 4. Feeling tired or having little energy: several days 5. Poor appetite or overeating: not at all 6. Feeling bad about yourself - or that you are a failure or have let yourself or your family down: not at all 7. Trouble concentrating on things, such as reading the newspaper or watching television: not at all 8. Moving or speaking so slowly that other people could have noticed. Or the opposite - being so fidgety or restless that you have been moving around a lot more than usual: not at all 9. Thoughts that you would be better off or of hurting yourself in some way: not at all Total score: 3 Depression Screening Interpretation: Positive Depression Screening Done: Yes 83700 - PHQ-9 Billing: Yes Source: Developed by Drs. Brett Nunez, Ryan Loepz and colleagues, with an educational aman from [employer]. Thrive Questionnaire Date Thrive assessed: 11/26/23 AUDIT C Alcohol Use Questionnaire (AUDIT-C) 1. How often do you have a drink containing alcohol?: Monthly or less 2. How many drinks containing alcohol do you have on a typical day when you are drinking?: 1 or 2 3. How often do you have six or more drinks on one occasion?: Never Total Score: 1 ANNA-7 AMB Questionnaire ANNA-7 Date ANNA - 7 assessed: 11/26/23 Source: Developed by Drs. Brett Nunez, Ryan Lopez and colleagues, with an educational aman from [employer]. Physical exam (Primary Care) Vital Signs: Last Vital Signs Pulse 69 06/07/24 09:35 BP 152/92 H 06/07/24 09:35 Pulse Ox 97 06/07/24 09:35 Oxygen Delivery Method Room Air 06/07/24 09:35 BMI result Body Mass Index 33.3 Tobacco/Smoking Status: Tobacco use Status Tobacco use date assessed 11/26/23 06/07/24 09:42 Patient Tobacco Use Status Never used Tobacco 06/07/24 09:42 Tobacco use type Cigarette 06/07/24 09:42 e-Cigarette/Vaping Use Never Used 06/07/24 09:42 PHQ-9: PHQ-9 Score PHQ-9: Total score 3 06/07/24 09:42 Depression Screening Interpretation: Positive Thrive Assessment: Date of Thrive Assessment Date Thrive assessed 11/26/23 06/07/24 09:42 Const General: alert; No acute distress Eyes Conjunctivae: conjunctivae normal Resp Auscultation: clear to auscultation bilaterally Cardio Rate: regular rate Rhythm: regular rhythm GI Inspection: Yes normal to inspection Extrem General: Yes normal to inspection and No edema Assessment and Plan Assessment & Plan (1) Hypercholesterolemia: Code(s): E78.00 - Pure hypercholesterolemia, unspecified Plan: Avoid fried foods, chicken skin, eggs, butter margarine, pastries and meat. Be it pork or beef they have a lot of cholesterol LDL goal of less than 130 and triglyceride of less than 150 diet controlled (2) GERD (gastroesophageal reflux disease): Code(s): K21.9 - Gastro-esophageal reflux disease without esophagitis Qualifiers: Esophagitis presence: without esophagitis Qualified Code(s): K21.9 - Gastro-esophageal reflux disease without esophagitis Plan: Avoid the foods that causes that usually spicy foods, tomato products, juices, coffee, soda and foods that your sensitive to. After eating do not lie down, allow 3-4 hours before in lie down. And keep the head of bed above 30 degrees to avoid the acid from going up. On omeprazole 20 mg once a (3) Obesity (BMI 30-39.9): Code(s): E66.9 - Obesity, unspecified Plan: Diet and exercise (4) History of breast cancer: Comment: Status post lumpectomy and right 2011, chemotherapy and radiation Dr. Castle surgeon and Dr. Haro May 2016 Code(s): Z85.3 - Personal history of malignant neoplasm of breast Plan: Patient is up-to-date with mammogram (5) Hypothyroidism: Code(s): E03.9 - Hypothyroidism, unspecified Qualifiers: Hypothyroidism type: acquired Qualified Code(s): E03.9 - Hypothyroidism, unspecified Plan: Continue with thyroid medication (6) Hypertension: Code(s): I10 - Essential (primary) hypertension Qualifiers: Hypertension type: essential hypertension Qualified Code(s): I10 - Essential (primary) hypertension Plan: Continue with blood pressure medication. Decrease salt intake and exercise takes losartan 50 mg once a day. BP at home is good Coding Level of Care Code Est Pt Level 4 (63315) Diagnoses Hypercholesterolemia E78.00 Gastroesophageal reflux disease without esophagitis K21.9 Esophagitis presence: without esophagitis Obesity (BMI 30-39.9) E66.9 History of breast cancer Z85.3 Acquired hypothyroidism E03.9 Hypothyroidism type: acquired Essential hypertension I10 Hypertension type: essential hypertension
== END 2024-06-07 10:11 | disposition home or self-care (01) ==
PROVIDERS: PCP Internal Medicine; Visit Provider Internal Medicine
DX: E78.00 Pure hypercholesterolemia, unspecified (principal); K21.9 Gastro-esophageal reflux disease without esophagitis; Z85.3 Personal history of malignant neoplasm of breast; E03.9 Hypothyroidism, unspecified; I10 Essential (primary) hypertension
CPT/HCPCS: 99214

== ENCOUNTER 2024-11-23 11:24 | Outpatient (AMB) | payer MEDICARE, SELFPAY ==
[2024-11-23 11:43] VITALS: BP 132/78; PULSE 74; O2SAT 97; BMI 33.5
--- NOTE | 2024-11-23 11:43 | A.OFFVIS_ITS ---
Intake Vital Signs 11/23/24 11:43 Height 5 ft 4 in Weight 195 lb BMI 33.5 BP 132/78 Blood Pressure Location Lt brachial Position Sitting Pulse 74 Pulse Source Pulse Oximeter Pulse Oximetry (%) 97 Oxygen Delivery Method Room Air Intake Visit Reasons: [facility] G0439 Allergies diclofenac Allergy (Unknown, Verified 11/23/24 11:45) Unknown Sulfa (Sulfonamide Antibiotics) [SULFA (SULFONAMIDE ANTIBIOTICS)] Allergy (Unknown, Verified 11/23/24 11:45) RASH peanut [PEANUT] Adverse Reaction (Intermediate, Verified 11/23/24 11:45) NAUSEA Medication List - Last Reconciled 11/23/24 by Sky No MD alprazolam 0.25 mg PO DAILY cholecalciferol (vitamin D3) 125 mcg PO DAILY losartan 50 mg PO DAILY 90 days omeprazole 20 mg PO DAILY Synthroid (levothyroxine) 75 mcg PO QAM NS tizanidine 2 mg PO BEDTIME PRN HPI [facility] G0439 HPI Details 68-year-old obese female with a history of osteopenia having vertebral fracture/osteoporosis hypercholesterolemia peripheral vascular disease GERD patient has a history of breast cancer 2012 hypertension hypothyroidism. Patient is here for an annual well visit last seen in 06/04/2024. Patient has had Cologuard testing in 09/04/2023, mammogram is up-to-date 07/05/2024 bone density is up-to-date 05/05/2023.. Reviewed Hematology-Oncology notes in October most recent mammogram 07/05/2024. Patient has also seen the [facility] in October diagnosis of trochanteric bursitis of the right hip i njections done 04/04/2024 last blood work Patient is being seen by hematology oncology in [facility], patient sees [facility] patient sees [facility], patient sees [facility] breast oncology and OB Gynecology. Patient also has seen [facility] for Orthopedics [facility] Medical History (Updated 03/29/24 @ 11:40 by Sky No MD) Colon cancer screening Endometrioma Knee pain, left Shoulder pain, right Depression Peripheral vascular disease Hypercholesterolemia GERD (gastroesophageal reflux disease) Obesity (BMI 30-39.9) History of breast cancer Back pain Hospital discharge follow-up Hypothyroidism Hypertension Surgical History History of total knee arthroplasty History of laparoscopic cholecystectomy H/O right wrist surgery Family History (Updated 04/23/23 @ 15:31 by ALEXANDER Wynne) Father CVD (cardiovascular disease) Diabetes Mother Diabetes Hypertension Breast cancer Maternal Grandmother Breast cancer Social History (Updated 03/29/24 @ 11:52 by Sky No MD) Housing: Condominium Alcohol intake: current Alcohol intake frequency: a few times a month Comment: 1-2 x a year 1 drink Patient Tobacco Use Status: Never used Tobacco Tobacco use type: Cigarette e-Cigarette/Vaping Use: Never Used Second Hand Smoke Exposure: Yes service: No Current occupational status: retired 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 Cognitive needs: No Hearing needs: No Vision needs: Yes Questionnaire Medicare Wellness Checkup [age] What gender do you identify with?: female During the past 4 weeks, how much have you been bothered by emotional problems such as feeling anxious, depressed, irritable, sad or downhearted, and blue?: not at all During the past 4 weeks, has your physical & emotional health limited your social activities with family, friends, neighbors, or groups?: not at all During the past 4 weeks, how much bodily pain have you generally had?: very mild pain During the past 4 weeks, was someone available to help you if you needed & wanted help?: yes, as much as I wanted During the past 4 weeks, what was the hardest physical activity you could do for at least 2 minutes?: moderate Can you get to places out of walking distance without help? (For eg., can you travel alone on buses, taxis or drive your car?): Yes Can you go shopping for groceries or clothes without someone's help?: Yes Can you prepare your own meals?: Yes Can you do your housework without help?: Yes Can you handle your own money without help?: Yes During the past 4 weeks, how would you rate your health in general?: good During the past 4 weeks how have things been going for you?: pretty well Are you having difficulties driving your car?: no Do you always fasten your seat belt when you are in a car?: yes, usually During past 4 weeks, have you been bothered by the following: never: Falling or dizzy when standing up, Sexual problems?, Trouble eating well?, Teeth or denture problems? and Problems using the telephone? and sometimes: Tiredness or fatigue? Have you fallen 2 or more times in the past year?: No Are you afraid of falling?: No Are you a smoker?: no During the past 4 weeks, how many drinks of wine, beer, or other alcoholic beverages did you have?: no alcohol at all Do you exercise for about 20 minutes 3 or more times a week?: yes, some of the time Have you been given information to help with the following?: no: Hazards in your house that might hurt you? and no: Keeping track of your medications? How often do you have trouble taking medicines the way you have been told to take them?: I always take medicine as prescribed How confident are you that you can control & manage most of your health problems?: very confident What is your race?: White PHQ-9 Over the last 2 weeks, how often have you been bothered by any of the following problems? 1. Little interest or pleasure in doing things: not at all 2. Feeling down, depressed, or hopeless: not at all 3. Trouble falling or staying asleep, or sleeping too much: more than half the days 4. Feeling tired or having little energy: several days 5. Poor appetite or overeating: not at all 6. Feeling bad about yourself - or that you are a failure or have let yourself or your family down: not at all 7. Trouble concentrating on things, such as reading the newspaper or watching television: not at all 8. Moving or speaking so slowly that other people could have noticed. Or the opposite - being so fidgety or restless that you have been moving around a lot more than usual: not at all 9. Thoughts that you would be better off or of hurting yourself in some way: not at all Total score: 3 Depression Screening Interpretation: Positive Depression Screening Done: Yes 50844 - PHQ-9 Billing: Yes Source: Developed by Drs. Brett Nunez, Jemma Winn, Ryan Nielsen and colleagues, with an educational aman from [employer]. Thrive Questionnaire Date Thrive assessed: 01/08/25 I am a: Patient What is your living situation today?: I have a steady place to live Within the past 12 months, did the food you bought not last and you didn't have the money to get more?: Never true Within the past 12 months, did you worry whether your food would run out before you got money to buy more?: Never true Do you have trouble paying for medicines?: No Do you have trouble getting transportation to medical appointments?: No Do you have trouble paying your heating and electricity bill?: No Do you have trouble taking care of your child, family member or friend?: No Do you have trouble with day-to-day activities such as bathing, preparing meals, shopping, managing finances, etc.?: No Are you currently unemployed and looking for a job?: No Are you interested in more education?: No Currently or been in a relationship where the following occur: No concerns reported THRIVE Score: 0 ANNA-7 AMB Questionnaire ANNA-7 Date ANNA - 7 assessed: 11/23/24 Feeling nervous, anxious, or on edge: 0 = Not at all Not being able to stop or control worryin = Not at all Worrying too much about different things: 0 = Not at all Trouble relaxin = Not at all Being so restless that it is hard to sit still: 0 = Not at all Becoming easily annoyed or irritable: 0 = Not at all Feeling afraid as if something awful might happen: 0 = Not at all Total ANNA-7 score (0-4 normal; 5-9 mild; 10-14 moderate; 15-21 severe): 0 Source: Developed by Drs. Brett Nunez, Jemma Winn, Ryan Nielsen and colleagues, with an educational aman from [employer]. ANNA-7 Assessment Billing ANNA-7 Assessment Tool: ANNA-7 Assessment 56931 Review of Systems Const Denies poor appetite and Denies weakness Eyes Denies no additional complaints ENT Reports Normal hearing present, Denies dizziness, Denies nasal congestion, Denies tinnitus and Denies sore throat Card Denies chest pain, Denies syncope, Denies rapid heart rate and Denies dyspnea Resp Denies cough and Denies dyspnea GI Denies change in stool character, Reports constipation, Denies diarrhea, Denies nausea and Denies vomiting Denies urinary frequency, Denies difficulty voiding and Denies dysuria Neuro Reports Normal hearing present, Denies confusion, Denies dizziness, Denies syncope and Denies weakness Psych Denies confusion Physical Exam Vital Signs: Oxygen Delivery Method Room Air 11/23/24 11:43 BMI result Body Mass Index 33.5 Const General: No confusion Orientation/consciousness: No confusion HEENT Head: Yes normocephalic Ears: external ears normal and TM's normal bilaterally Face and sinus: Yes normal facial exam Mouth: moist mucous membranes Throat: Yes tonsils normal Eyes Conjunctivae: conjunctivae normal Pupils: Equal, round and reactive pupils present and Pupil accommodation reflex normal Direct Ophthalmoscopy: normal light reflex Neck Neck: No lymphadenopathy Thyroid: Thyroid normal Chest Chest palpation & inspection: normal inspection of the chest Resp Effort & Inspection: normal respiratory effort and no audible wheezes Auscultation: clear to auscultation bilaterally, no crackles, no wheezes and lung sounds not diminished Cardio Rate: regular rate Rhythm: regular rhythm Peripheral pulses: radial pulses present and dorsalis pedis present GI Other: declined rectal Palpation (GI): no masses Auscultation: normal bowel sounds and normoactive bowel sounds Rectal Exam - Female: deferred Skin General skin exam: no rashes or lesions noted Rashes: no rashes Neuro General: No confusion Cranial nerves: Yes Equal, round and reactive pupils present and Yes Normal hearing present Cognition (Neuro): normal cognition Gait exam (Neuro): Normal gait present Motor exam (neuro): 5/5 motor strength present throughout Deep tendon reflexes (DTR's): Right brachioradialis reflex intensity grade: 2+, Left brachioradialis reflex intensity grade: 2+, Right patellar reflex intensity grade: 2+ and Left patellar reflex intensity grade: 2+ Extrem General: No edema Assessment & Plan Assessment & Plan (1) Medicare annual wellness visit, subsequent: Code(s): Z00.00 - Encounter for general adult medical examination without abnormal findings Plan: Patient is advised to eat healthy, keep well hydrated, keep active and have adequate sleep. (2) History of breast cancer: Comment: Status post lumpectomy and right 2011, chemotherapy and radiation Dr. Castle surgeon and Dr. Haro May 2016 Code(s): Z85.3 - Personal history of malignant neoplasm of breast Plan: Continue to follow-up with Hematology-Oncology and up-to-date with mammogram (3) Hypercholesterolemia: Code(s): E78.00 - Pure hypercholesterolemia, unspecified Plan: Avoid fried foods, chicken skin, eggs, butter margarine, pastries and meat. Be it pork or beef they have a lot of cholesterol LDL goal of less than 130 and triglyceride of less than 150. (4) GERD (gastroesophageal reflux disease): Code(s): K21.9 - Gastro-esophageal reflux disease without esophagitis Qualifiers: Esophagitis presence: without esophagitis Qualified Code(s): K21.9 - Gastro-esophageal reflux disease without esophagitis Plan: Avoid the foods that causes that usually spicy foods, tomato products, juices, coffee, soda and foods that your sensitive to. After eating do not lie down, allow 3-4 hours before in lie down. And keep the head of bed above 30 degrees to avoid the acid from going up. (5) Obesity (BMI 30-39.9): Code(s): E66.9 - Obesity, unspecified Plan: Diet and exercise (6) Hypothyroidism: Code(s): E03.9 - Hypothyroidism, unspecified Qualifiers: Hypothyroidism type: acquired Qualified Code(s): E03.9 - Hypothyroidism, unspecified Plan: Continue with thyroid medication and continuing to monitor. (7) Hypertension: Code(s): I10 - Essential (primary) hypertension Qualifiers: Hypertension type: essential hypertension Qualified Code(s): I10 - Essential (primary) hypertension Plan: Continue with blood pressure medication. Decrease salt intake and exercise on losartan 50 mg once a day. Orders: Orders Complete Blood Count Auto Diff 5 Months E03.9 - Hypothyroidism, unspecified Comprehensive Met. Panel 5 Months E03.9 - Hypothyroidism, unspecified Free T4 (Free Thyroxine) 5 Months E03.9 - Hypothyroidism, unspecified Vitamin D 25-OH Total 5 Months E03.9 - Hypothyroidism, unspecified Thyroid Stimulating Hormone 5 Months E03.9 - Hypothyroidism, unspecified Vitamin B12 and Folate 5 Months E03.9 - Hypothyroidism, unspecified Lipid Panel 5 Months E03.9 - Hypothyroidism, unspecified, E78.00 - Pure hypercholesterolemia, unspecified UA CC w/rflx Micro + Cult 5 Months E03.9 - Hypothyroidism, unspecified, R30.0 - Dysuria Quality Reporting (2019) Depression/Bipolar (159/160/161/177) PHQ-9: Total score: 3 Coding Level of Care Code Medicare Subsequent (G0439) Diagnoses Medicare annual wellness visit, subsequent Z00.00 History of breast cancer Z85.3 Hypercholesterolemia E78.00 Gastroesophageal reflux disease without esophagitis K21.9 Esophagitis presence: without esophagitis Obesity (BMI 30-39.9) E66.9 Acquired hypothyroidism E03.9 Hypothyroidism type: acquired Essential hypertension I10 Hypertension type: essential hypertension Additional Codes PHQ-9 - 17164 - PHQ-9 Billing: Yes ([id number]) ANNA-7 Assessment Billing - ANNA-7 Assessment Tool: ANNA-7 Assessment [id number] ([id number])
== END 2024-11-23 12:29 | disposition home or self-care (01) ==
PROVIDERS: PCP Internal Medicine; Visit Provider Internal Medicine
DX: Z00.00 Encounter for general adult medical examination without abnormal findings (principal); Z85.3 Personal history of malignant neoplasm of breast; E78.00 Pure hypercholesterolemia, unspecified; Z68.33 Body mass index [BMI] 33.0-33.9, adult; E66.9 Obesity, unspecified; K21.9 Gastro-esophageal reflux disease without esophagitis; E03.9 Hypothyroidism, unspecified; I10 Essential (primary) hypertension

== ENCOUNTER → 2024-11-23 11:24 | Outpatient (BNVA) | payer MEDICARE, SELFPAY | PROVIDERS: PCP Internal Medicine; Visit Provider Internal Medicine | DX: Z00.00 Encounter for general adult medical examination without abnormal findings (principal); E78.00 Pure hypercholesterolemia, unspecified; K21.9 Gastro-esophageal reflux disease without esophagitis; E03.9 Hypothyroidism, unspecified; E66.9 Obesity, unspecified; Z68.33 Body mass index [BMI] 33.0-33.9, adult; I10 Essential (primary) hypertension; Z85.3 Personal history of malignant neoplasm of breast; Z71.3 Dietary counseling and surveillance | CPT/HCPCS: 96127 ==

== ENCOUNTER 2025-06-29 10:53 | Outpatient (AMB) | payer MEDICARE, SELFPAY ==
--- NOTE | 2025-06-29 10:57 | MHC.PC.OV ---
Vital Signs 06/29/25 10:58 06/29/25 11:20 Height 5 ft 4 in Weight 196 lb BMI 33.6 BP 142/88 H 180/92 H Blood Pressure Location Lt brachial Lt brachial Position Sitting Sitting Pulse 61 Pulse Source Pulse Oximeter Pulse Oximetry (%) 95 Oxygen Delivery Method Room Air Intake Visit Reasons: Hypertension Behavioral Modification Assistant Required: No Accompanied by: Self / Same As Patient Allergies diclofenac Allergy (Unknown, Verified 06/29/25 11:10) Unknown Sulfa (Sulfonamide Antibiotics) (SULFA (SULFONAMIDE ANTIBIOTICS)) Allergy (Unknown, Verified 06/29/25 11:10) RASH peanut (PEANUT) Adverse Reaction (Intermediate, Verified 06/29/25 11:10) NAUSEA Medication List - Last Reconciled 06/29/25 by Shanti Drummond PA-C cholecalciferol (vitamin D3) 125 mcg PO DAILY losartan 50 mg PO DAILY 90 days omeprazole 20 mg PO DAILY Synthroid (levothyroxine) 75 mcg PO QAM NS tizanidine 2 mg PO BEDTIME PRN Tobacco use date assessed: 06/29/25 Fall risk assessment: No Falls in past year Last assessed Fall Risk: 06/29/25 Dental Screening Dental Screen Date: 06/29/25 Did you have a dental visit in the last 12 months?: No Did you have a dental problem in the last 6 months where you did not have access to dental care?: No Was dental information given to patient?: No HPI Hypertension HPI Details 69-year-old female with past medical history of peripheral vascular disease, hypercholesterolemia, GERD, obesity, hypothyroidism, hypertension, anxiety last seen 11/[address] No coming in for follow up on blood pressure. Presenting with persistent headaches and elevated blood pressure. She reports daily headaches upon waking, persisting throughout the day, with temporary relief from Excedrin. The patient has a history of hypertension with fluctuating readings, noted to be high during recent visits. She has not consistently monitored her blood pressure at home but recalls variable past readings. The patient denies chest pain or significant weight gain, with stable weight over the past year. She has a history of glaucoma and suspects her headaches may be related to vision or sinus issues. Occasional snoring and waking up tired raise concerns about possible sleep apnea. [facility] Medical History Colon cancer screening Endometrioma Knee pain, left Shoulder pain, right Depression Peripheral vascular disease Hypercholesterolemia GERD (gastroesophageal reflux disease) Obesity (BMI 30-39.9) History of breast cancer Back pain Hospital discharge follow-up Hypothyroidism Hypertension Surgical History History of total knee arthroplasty History of laparoscopic cholecystectomy H/O right wrist surgery Family History Father CVD (cardiovascular disease) Diabetes Mother Diabetes Hypertension Breast cancer Maternal Grandmother Breast cancer Social [facility] Alcohol intake: current Alcohol intake frequency: a few times a month Comment: 1-2 x a year 1 drink Patient Tobacco Use Status: Never used Tobacco Tobacco use type: Cigarette e-Cigarette/Vaping Use: Never Used Second Hand Smoke Exposure: Yes service: No Current occupational status: retired 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 1. Little interest or pleasure in doing things: not at all 2. Feeling down, depressed, or hopeless: not at all 3. Trouble falling or staying asleep, or sleeping too much: not at all 4. Feeling tired or having little energy: not at all 5. Poor appetite or overeating: not at all 6. Feeling bad about yourself - or that you are a failure or have let yourself or your family down: not at all 7. Trouble concentrating on things, such as reading the newspaper or watching television: not at all 8. Moving or speaking so slowly that other people could have noticed. Or the opposite - being so fidgety or restless that you have been moving around a lot more than usual: not at all 9. Thoughts that you would be better off or of hurting yourself in some way: not at all Total score: 0 Depression Screening Interpretation: Negative Depression Screening Done: Yes 99039 - PHQ-9 Billing: Yes Source: Developed by Drs. Brett Nunez, JemmaRyan Espinoza and colleagues, with an educational aman from [employer]. Thrive Questionnaire Date Thrive assessed: 06/29/25 I am a: Patient What is your living situation today?: I have a steady place to live Within the past 12 months, did the food you bought not last and you didn't have the money to get more?: Never true Within the past 12 months, did you worry whether your food would run out before you got money to buy more?: Never true Do you have trouble paying for medicines?: No Do you have trouble getting transportation to medical appointments?: No Do you have trouble paying your heating and electricity bill?: No Do you have trouble taking care of your child, family member or friend?: No Do you have trouble with day-to-day activities such as bathing, preparing meals, shopping, managing finances, etc.?: No Are you currently unemployed and looking for a job?: No Are you interested in more education?: No Please select the resources that you would like help with: None Currently or been in a relationship where the following occur: No concerns reported THRIVE Score: 0 AUDIT C Alcohol Use Questionnaire (AUDIT-C) 1. How often do you have a drink containing alcohol?: Never Total Score: 0 ANNA-7 AMB Questionnaire ANNA-7 Date ANNA - 7 assessed: 06/29/25 Feeling nervous, anxious, or on edge: 0 = Not at all Not being able to stop or control worryin = Not at all Worrying too much about different things: 0 = Not at all Trouble relaxin = Not at all Being so restless that it is hard to sit still: 0 = Not at all Becoming easily annoyed or irritable: 0 = Not at all Feeling afraid as if something awful might happen: 0 = Not at all Total ANNA-7 score (0-4 normal; 5-9 mild; 10-14 moderate; 15-21 severe): 0 Source: Developed by Drs. Brett Nunez, Ryan Lopez and colleagues, with an educational aman from [employer]. ANNA-7 Assessment Billing ANNA-7 Assessment Tool: ANNA-7 Assessment 70820 Review of Systems Const Denies body aches, Denies chills, Denies fever(s), Denies headache(s) and Denies poor appetite Eyes Reports no additional complaints ENT Denies dysphagia, Denies dizziness, Denies headache(s) and Denies odynophagia Card Denies chest pain, Denies syncope, Denies edema, Denies irregular heart rhythm, Denies lightheadedness and Denies dyspnea Resp Denies cough and Denies dyspnea GI Denies abdominal pain, Denies constipation, Denies dysphagia, Denies diarrhea, Denies nausea, Denies odynophagia and Denies vomiting Reports no additional complaints Musc Reports no additional complaints and Denies abnormal gait Skin/Breast Reports system reviewed and no additional complaints, except as documented Neuro Denies abnormal gait, Denies dizziness, Denies syncope and Denies headache(s) Psych Reports no additional complaints Physical exam (Primary Care) Vital Signs: Last Vital Signs Pulse 61 06/29/25 10:58 BP 180/92 H 06/29/25 11:20 Pulse Ox 95 06/29/25 10:58 Oxygen Delivery Method Room Air 06/29/25 10:58 BMI result Body Mass Index 33.6 Tobacco/Smoking Status: Tobacco use Status Tobacco use date assessed 06/29/25 06/29/25 11:06 Patient Tobacco Use Status Never used Tobacco 06/29/25 11:06 Tobacco use type Cigarette 06/29/25 11:06 e-Cigarette/Vaping Use Never Used 06/29/25 11:06 PHQ-9: PHQ-9 Score PHQ-9: Total score 0 06/29/25 11:12 Depression Screening Interpretation: Negative Thrive Assessment: Date of Thrive Assessment Date Thrive assessed 06/29/25 06/29/25 11:06 Currently or been in a relationship where the following occur: No concerns reported Const General: cooperative, healthy appearing, comfortable and no acute distress Orientation/consciousness: patient oriented x3 HENMT Head: Yes normocephalic Ears: hearing grossly normal bilaterally General nose exam: Normal external nose present Eyes General: appearance normal, both eyes and all related structures Conjunctivae: conjunctivae normal Neck Neck: Yes full ROM and Yes no lymphadenopathy Resp Effort & Inspection: normal respiratory effort Auscultation: clear to auscultation bilaterally, no crackles, no rales, no rhonchi and no wheezes Cardio Rate: regular rate Rhythm: regular rhythm Skin General skin exam: no rashes or lesions noted Neuro General: patient oriented x3 Gait exam (Neuro): Normal gait present Extrem General: Yes normal to inspection, Yes full ROM and No edema Psych Affect: normal affect Attitude: cooperative Insight: Good insight present (Psych) Judgement: Good judgement present (Psych) Coding Level of Care Code Est Pt Level 4 (89463) Diagnoses Essential hypertension I10 Hypertension type: essential hypertension Hypercholesterolemia E78.00 Obesity (BMI 30-39.9) E66.9 Gastroesophageal reflux disease without esophagitis K21.9 Esophagitis presence: without esophagitis Headache R51.9 Additional Codes ANNA-7 Assessment Billing - ANNA-7 Assessment Tool: ANNA-7 Assessment 40327 ([id number]) PHQ-9 - 67614 - PHQ-9 Billing: Yes ([id number]) Assessment & Plan Assessment & Plan (1) Hypertension: Code(s): I10 - Essential (primary) hypertension Category: Medical Qualifiers: Hypertension type: essential hypertension Qualified Code(s): I10 - Essential (primary) hypertension Plan: Pressure is not well managed at this time and blood pressure in the office today is 180/92. Plan to increase losartan to 100 mg. Patient to continue monitoring her blood pressure daily and bring log to next visit. She did provide a log in the office today that revealed systolic 131-40s over diastolic 80-90 (2) Hypercholesterolemia: Code(s): E78.00 - Pure hypercholesterolemia, unspecified Category: Medical Plan: Avoid fried foods, chicken skin, eggs, butter margarine, pastries and meat. Be it pork or beef they have a lot of cholesterol LDL goal of less than 130 and triglyceride of less than 150. (3) Obesity (BMI 30-39.9): Code(s): E66.9 - Obesity, unspecified Category: Medical Plan: Healthy diet and regular exercise is encouraged. (4) GERD (gastroesophageal reflux disease): Code(s): K21.9 - Gastro-esophageal reflux disease without esophagitis Category: Medical Qualifiers: Esophagitis presence: without esophagitis Qualified Code(s): K21.9 - Gastro-esophageal reflux disease without esophagitis Plan: Avoid trigger foods such as citrus, tomato products, soda, caffeine, spicy foods and other foods that may be irritating to your stomach. Avoid laying flat 3-4 hours after eating and elevate the head of the bed 30 degrees to prevent acid from moving into the esophagus. (5) Headache: Code(s): R51.9 - Headache, unspecified Category: Medical Plan: Headaches from likely multifactorial involving blood pressure and possible vision issues. She is scheduled to see her eye doctor soon to address glaucoma and worsening vision. We will increase the losartan to 100 mg. Patient to follow up if headache does not improve with management of vision and blood pressure. Plan The management plan focuses on controlling the patient's hypertension, which is likely contributing to her headaches. The losartan dosage is increased to 100 mg, with instructions for the patient to monitor her blood pressure at home consistently. If readings drop too low, she should revert to the previous dosage and notify the clinician. The patient is also advised to undergo fasting blood work to assess thyroid function, given her history of thyroid issues. A follow-up appointment is scheduled in two months to evaluate the effectiveness of the treatment and any improvement in her symptoms. This note was constructed using voice recognition software. While every effort has been made to ensure accuracy and curriculum director, still areas may have been included sometimes these areas may affect the content or meeting of the given symptoms. Total time spent caring for the patient today was 20 minutes. This includes time spent before the visit reviewing the chart, time spent during the visit, and time spent after the visit and documentation. Patient was informed and verbally consented to the use of an ambient scribe for clinic note documentation during this visit. Medications: New losartan 100 mg PO DAILY 90 tabs 1RF Discontinued losartan Discontinued Reason: Patient no longer taking 50 mg PO DAILY 90 days 90 tabs 3RF
[2025-06-29 10:58] VITALS: BP 142/88; PULSE 61; O2SAT 95; BMI 33.6
[2025-06-29 11:20] VITALS: BP 180/92
--- OUTSIDE RECORDS SUMMARY | 2025-06-29 12:06 | XMS_ITS | Patient Health Record ---
Author Organization [employer] [facility] Address [address] [place] [address] Care Team Providers Care Stamps Or Coins Salesperson Name Role Phone MARCIA CHOPRA M.D. Primary Care Provider JUANI Tariq [phone] Allergies Allergen (clinical drug ingredient) Drug/Non Drug Allergy documented on EMR Reaction Allergy Type Onset Date Status Substance with sulfonamide structure and antibacterial mechanism of action (substance) Sulfa Antibiotics rash, swelling Drug Allergy Active Reason For Referral No Information Medications Medication SIG (Take, Route, Frequency, Duration) Notes Start Date End Date Status Losartan Potassium 50 MG 1 tablet Orally Once a day; Duration: 30 day(s) Active Synthroid 75 MCG 1 ORAL daily; Duration: -3 Isidro-MJ 2011 Active PriLOSEC OTC 20 MG 1 tablet 30 minutes before morning meal Orally Once a day; Duration: 30 day(s) Active Social History Tobacco Use: Social History Observation Description Date Details (start date - stop date) Never Smoker NA - NA Tobacco Use/Smoking Question Answer Notes Are you a nonsmoker AUDIT-C (Standard) Question Answer Notes Did you have a drink contain ing alcohol in the past year? Yes How often did you have a dri nk containing alcohol in the past year? Monthly or less (1 point) How many drinks did you have on a typical day when you were drinking in the past year? 1 or 2 drinks (0 point) How often did you have six o r more drinks on one occasion in the past year? Never (0 point) Points 1 Interpretation Negative Problems Problem Type SNOMED Code ICD Code Onset Dates Problem Status W/U Status Risk Notes Problem Essential hypertension (05271920) Essential (primary) hypertension (I10) Active confirmed Problem Hypothyroidism (08759290) Hypothyroidism, unspecified (E03.9) Active confirmed Problem Malignant neoplasm of overlapping sites of right female breast (C50.811) Active confirmed Problem Gastro-esophageal reflux disease without esophagitis (579304462) Gastro-esophageal reflux disease without esophagitis (K21.9) Active confirmed Problem Malignant neoplasm of female breast (052661107) Malignant neoplasm of other specified sites of female breast (174.8) Active confirmed Diag Problem Hypothyroidism (26625436) Unspecified hypothyroidism (244.9) Active confirmed Major Problem Hyperlipidemia (48902544) Other and unspecified hyperlipidemia (272.4) Active confirmed Major Problem Benign essential hypertension (0428990) Essential hypertension, benign (401.1) Active confirmed Major Problem Mucous polyp of cervix (86934866) Mucous polyp of cervix (622.7) Active confirmed Diag Problem Menopausal symptom (50791919) Symptomatic menopausal or female climacteric states (627.2) Active confirmed Major Problem Gynecological examination normal (714508960764907) Routine gynecological examination (V72.31) Active confirmed Major Problem Screening for malignant neoplasm of colon (713024945) Special screening for malignant neoplasms, colon (V76.51) Active confirmed Major Vital Signs Heart Rate 97.1 /min 05/29/2025 Blood pressure diastolic 84 mm Hg 05/29/2025 Height 64.00 in 05/29/2025 Blood pressure systolic 158 mm Hg 05/29/2025 Weight 192 lbs 05/29/2025 BMI 32.95 kg/m2 05/29/2025 Encounters Encounter Location Date Provider Diagnosis [address] [address] 05/29/2025 JUANI RUBY Encounter for gynecological examination (general) (routine) without abnormal findings Z01.419 and Encounter for screening mammogram for malignant neoplasm of breast Z12.31 Assessments Encounter Date Diagnosis (ICD Code) Assessment Notes Treatment Notes Treatment Clinical Notes Section Notes 05/29/2025 Encounter for gynecological examination (general) (routine) without abnormal findings (ICD-10 - Z01.419) During the visit, the following areas of concern were addressed: Discussed sstopping cervical cancer screening as per ASCCP guidelines. Advised continued annual pelvic exams. Patient encouraged to increase her level of exercise. SBE technique encouraged/tau ght. Patient reminded when annual mammogram is due. Patient encouraged to keep colon screening up to date. 05/29/2025 Encounter for screening mammogram for malignant neoplasm of breast (ICD-10 - Z12.31) Plan Of Treatment Pending Test Test Name Order Date ULTRASOUND: PELVIC W/TRANSVAGINAL 2020 ULTRASOUND: PELVIC W/TRANSVAGINAL 2020 MM Digital Screening Mammogram 3D 2022 MM Digital Screening Mammogram 3D 2024 MM Digital Screening Mammogram 3D 2020 Insurance Providers Payer Name Payer Address Payer Phone Subscriber Number Group Number Insured Name Patient Relationship to Insured Coverage Start Date Coverage End Date MEDICARE [address] [place], [place] [id number] [employer] MENDEZ Self - patient is the insured 0 [employer] [place] [address] [place] [address] [id number] [employer] Self - patient is the insured 0 Medical (General) History Medical History History ICD Code Essential (primary) hypertension I10 Hypothyroidism, unspecified E03.9 Malignant neoplasm of overlapping sites of right female breast C50.811 Gastro-esophageal reflux disease without esophagitis K21.9 Surgical History Surgery Date(Month/Year) Right Knee Replacement 01/20/2020 Breast Bx 07/2020 Right Breast Lumpectomy - cancer 05/2012 Fracture in left leg requiring the place ment of a meet 1998 Stephen tylere 2009 right wrist surgery (broken wrist) 2010 Open removal of hardware, le ft tibia intramedullary nail and distal locking screw 04/2022 Left total knee arthroplasty 01/2023 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
== END 2025-06-29 11:35 | disposition home or self-care (01) ==
LOC: HO.HMCH 10:54
PROVIDERS: PCP Internal Medicine
DX: I10 Essential (primary) hypertension (principal); E78.00 Pure hypercholesterolemia, unspecified; E66.9 Obesity, unspecified; Z68.33 Body mass index [BMI] 33.0-33.9, adult; K21.9 Gastro-esophageal reflux disease without esophagitis; R51.9 Headache, unspecified

== ENCOUNTER → 2025-06-29 10:53 | Outpatient (BNVA) | payer MEDICARE, SELFPAY | PROVIDERS: PCP Internal Medicine | DX: I10 Essential (primary) hypertension (principal); E78.00 Pure hypercholesterolemia, unspecified; I73.9 Peripheral vascular disease, unspecified; K21.9 Gastro-esophageal reflux disease without esophagitis; E03.9 Hypothyroidism, unspecified; F41.9 Anxiety disorder, unspecified; H51.9 Unspecified disorder of binocular movement; R51.9 Headache, unspecified; E66.9 Obesity, unspecified; Z68.33 Body mass index [BMI] 33.0-33.9, adult | CPT/HCPCS: 96127; 99212 ==

== ENCOUNTER 2025-07-01 08:07 | Outpatient (REF) | payer MEDICARE, SELFPAY ==
--- OUTSIDE RECORDS SUMMARY | 2025-07-01 08:10 | XMS_ITS | Patient Health Record ---
Author Organization [facility] Address [address] [place] [address] Care Team Providers Care Quality Assurance Project Manager Name Role Phone MARCIA CHOPRA M.D. Primary Care Provider JUANI Tariq [phone] Allergies Allergen (clinical drug ingredient) Drug/Non Drug [...] W/U Status Risk Notes Problem Essential hypertension (31646358) Essential (primary) hypertension (I10) Active confirmed Problem Hypothyroidism (07765810) Hypothyroidism, unspecified (E03.9) Active confirmed Problem Malignant neoplasm of overlapping sites of right female breast (C50.811) Active confirmed Problem Gastro-esophageal reflux disease without esophagitis (058231682) Gastro-esophageal reflux disease without esophagitis (K21.9) Active confirmed Problem Malignant neoplasm of female breast (278986494) Malignant neoplasm of other specified sites of female breast (174.8) Active confirmed Diag Problem Hypothyroidism (71318650) Unspecified hypothyroidism (244.9) Active confirmed Major Problem Hyperlipidemia (38078891) Other and unspecified hyperlipidemia (272.4) Active confirmed Major Problem Benign essential hypertension (8229921) Essential hypertension, benign (401.1) Active confirmed Major Problem Mucous polyp of cervix (45435938) Mucous polyp of cervix (622.7) Active confirmed Diag Problem Menopausal symptom (14684677) Symptomatic menopausal or female climacteric states (627.2) Active confirmed Major Problem Gynecological examination normal (554537862429014) Routine gynecological examination (V72.31) Active confirmed Major Problem Screening for malignant neoplasm of colon (789722684) Special screening for malignant neoplasms, colon (V76.51) Active confirmed Major Vital Signs Heart Rate 97.1 /min 05/29/2025 Blood pressure diastolic 84 mm Hg 05/29/2025 Height 64.00 in 05/29/2025 Blood pressure systolic 158 mm Hg 05/29/2025 Weight 192 lbs 05/29/2025 BMI 32.95 kg/m2 05/29/2025 Encounters Encounter Location Date Provider Diagnosis [address] [address] 05/29/2025 JUANI RUBY Encounter for gynecological examination [...] W/TRANSVAGINAL 2020 MM Digital Screening Mammogram 3D 2020 MM Digital Screening Mammogram 3D 2022 MM Digital Screening Mammogram 3D 2024 Insurance Providers Payer Name Payer Address Payer Phone Subscriber Number Group Number Insured Name Patient Relationship to Insured Coverage Start Date Coverage End Date MEDICARE [address] [place], [place] [id number] [employer] MENDEZ Self - patient is the insured 0 [employer] [place] [address] [place] [address] [id number] [employer] MENDEZ Self - patient is [...]
[2025-07-01 08:40] LABS: MANUAL DIFF FLAG NO
[2025-07-01 09:05] LABS: Hematocrit 41.4 % (37.0-47.0); Hemoglobin 13.6 g/dl (12.0-16.0); Imm Gran Abs Auto 0.01 X10*3/uL (0.00-0.03); Imm Gran Pct Auto 0.2 % (0.0-0.4); Lymphocytes Absolute Auto 1.6 X10*3/uL (1.2-4.9); Mean Corpuscular HGB Conc 32.9 g/dl (31.0-35.0); Mean Corpuscular Hemoglobin 26.2 pg (27.0-33.0); Mean Corpuscular Volume 79.8 fL (80.0-98.0); NRBC Abs Auto 0.000 X10*3/uL (0.0-0.012); NRBC Pct Auto 0.0 /100WBC (0.0-0.2); Platelet Count 255 X10*3/uL (160-400); Red Blood Count 5.19 X10*6/uL (4.20-5.50); White Blood Count 6.2 X10*3/uL (4.8-10.8)
[2025-07-01 09:51] LABS: Alanine Aminotransferase 22 U/L (0-31); Albumin Level 4.4 g/dL (3.5-5.0); Alkaline Phosphatase 76 U/L (39-117); Anion Gap 15 (12-20); Aspartate Amino Transferase 26 U/L (5-31); Blood Urea Nitrogen 16 mg/dL (9-16); Calcium 9.6 mg/dL (8.4-10.2); Carbon Dioxide 28 mmol/L (22-29); Chloride 104 mmol/L (96-108); Cholesterol 236 mg/dL (<200); Estimated Glomerular Filt Rate > 60; HDL Cholesterol 54 mg/dL (>40); Potassium 4.2 mmol/L (3.3-5.1); Sodium 143 mmol/L (135-145); Total Protein 6.6 g/dL (6.5-8.0); Triglycerides 141 mg/dL (<150)
[2025-07-01 09:51] LABS: Appearance Urine Clear; Glucose Urine UA Negative (Negative); PH 6.5 (5.0-9.0); Specific Gravity - Urine 1.020 (1.005-1.025); UMIC TRIGGER UACC YES
[2025-07-01 10:05] LABS: Folate 7.7 ng/mL (> or = 4.0); Vitamin B12 545 pg/mL (200-900)
[2025-07-01 10:07] LABS: UACC Culture Trigger YES
[2025-07-01 10:08] LABS: Free T4 (Free Thyroxine) 1.05 ng/dL (0.71-1.85); Thyroid Stimulating Hormone 2.35 uIU/mL (0.32-4.0)
== END 2025-07-01 08:08 | disposition home or self-care (01) ==
LOC: HO.LAB 08:07
PROVIDERS: PCP Internal Medicine; Visit Provider Internal Medicine
DX: R30.0 Dysuria (principal); E78.00 Pure hypercholesterolemia, unspecified; E03.9 Hypothyroidism, unspecified
CPT/HCPCS: 36415; 80053; 80061; 81001; 82306; 82607; 82746; 84439; 84443; 85025; 87086

== ENCOUNTER 2025-09-12 09:29 | Outpatient (AMB) | payer MEDICARE, SELFPAY ==
[2025-09-12 09:39] VITALS: BP 136/72; PULSE 66; TEMP 36.1; O2SAT 95; BMI 33.7
--- NOTE | 2025-09-12 09:39 | MHC.PC.OV ---
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 Required: No Accompanied by: Self / Same As Patient Allergies diclofenac Allergy (Unknown, Verified 09/12/25 10:02) Unknown Sulfa (Sulfonamide Antibiotics) (SULFA (SULFONAMIDE ANTIBIOTICS)) Allergy (Unknown, Verified 09/12/25 10:02) RASH peanut (PEANUT) Adverse Reaction (Intermediate, Verified 09/12/25 10:02) NAUSEA Medication List - Last Reconciled 09/12/25 by Shanti Drummond PA-C cholecalciferol (vitamin D3) 125 mcg PO DAILY losartan 100 mg PO DAILY omeprazole 20 mg PO DAILY Synthroid (levothyroxine) 75 mcg PO QAM NS tizanidine 2 mg PO BEDTIME PRN Tobacco use date assessed: 06/29/25 Fall risk assessment: 1 Fall in past year Last assessed Fall Risk: 06/29/25 Dental Screening Dental Screen Date: 06/29/25 Did you have a dental visit in the last 12 months?: No Did you have a dental problem in the last 6 months where you did not have access to dental care?: No Was dental information given to patient?: No HPI f/u BP w/ Po or myself HPI Details 69-year-old female with past medical history of peripheral vascular disease, hypercholesterolemia, GERD, obesity, hypothyroidism, hypertension, anxiety last seen 06/2025 coming in for follow up. Presenting for a follow-up on her blood pressure and review of lab results. The patient reports her home blood pressure readings are variable, with the highest values occurring in the morning before taking her medication. Her headaches have been about the same since managing the blood pressure and do not appear to be blood pressure related. Headaches are not severe but are bothersome. She did also recently see the eye doctor in his managing her vision at this time. She spends prolonged period of time on her computer and on the phone both for work and for recreational activities. [facility] Medical History Colon cancer screening Endometrioma Knee pain, left Shoulder pain, right Depression Peripheral vascular disease Hypercholesterolemia GERD (gastroesophageal reflux disease) Obesity (BMI 30-39.9) History of breast cancer Back pain Hospital discharge follow-up Hypothyroidism Hypertension Surgical History History of total knee arthroplasty History of laparoscopic cholecystectomy H/O right wrist surgery Family History Father CVD (cardiovascular disease) Diabetes Mother Diabetes Hypertension Breast cancer Maternal Grandmother Breast cancer Social History Housing: Condominium Alcohol intake: current Alcohol intake frequency: a few times a month Comment: 1-2 x a year 1 drink Patient Tobacco Use Status: Never used Tobacco Tobacco use type: Cigarette e-Cigarette/Vaping Use: Never Used Second Hand Smoke Exposure: Yes service: No Current occupational status: retired 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 1. Little interest or pleasure in doing things: not at all 2. Feeling down, depressed, or hopeless: not at all 3. Trouble falling or staying asleep, or sleeping too much: not at all 4. Feeling tired or having little energy: not at all 5. Poor appetite or overeating: not at all 6. Feeling bad about yourself - or that you are a failure or have let yourself or your family down: not at all 7. Trouble concentrating on things, such as reading the newspaper or watching television: not at all 8. Moving or speaking so slowly that other people could have noticed. Or the opposite - being so fidgety or restless that you have been moving around a lot more than usual: not at all 9. Thoughts that you would be better off or of hurting yourself in some way: not at all Total score: 0 Depression Screening Interpretation: Negative Depression Screening Done: Yes Source: Developed by Drs. Brett Nunez, Jemma Winn, Ryan Nielsen and colleagues, with an educational aman from [employer]. Thrive Questionnaire Date Thrive assessed: 06/23/25 I am a: Patient What is your living situation today?: I have a steady place to live Within the past 12 months, did the food you bought not last and you didn't have the money to get more?: Never true Within the past 12 months, did you worry whether your food would run out before you got money to buy more?: Never true Do you have trouble paying for medicines?: No Do you have trouble getting transportation to medical appointments?: No Do you have trouble paying your heating and electricity bill?: No Do you have trouble taking care of your child, family member or friend?: No Do you have trouble with day-to-day activities such as bathing, preparing meals, shopping, managing finances, etc.?: No Are you currently unemployed and looking for a job?: No Are you interested in more education?: No Please select the resources that you would like help with: None Currently or been in a relationship where the following occur: No concerns reported THRIVE Score: 0 AUDIT C Alcohol Use Questionnaire (AUDIT-C) 1. How often do you have a drink containing alcohol?: Never Total Score: 0 ANNA-7 AMB Questionnaire ANNA-7 Date ANNA - 7 assessed: 06/29/25 Feeling nervous, anxious, or on edge: 0 = Not at all Not being able to stop or control worryin = Not at all Worrying too much about different things: 0 = Not at all Trouble relaxin = Not at all Being so restless that it is hard to sit still: 0 = Not at all Becoming easily annoyed or irritable: 0 = Not at all Feeling afraid as if something awful might happen: 0 = Not at all Total ANNA-7 score (0-4 normal; 5-9 mild; 10-14 moderate; 15-21 severe): 0 Source: Developed by Drs. Brett Nunez, Jemma Winn, Ryan Nielsen and colleagues, with an educational aman from [employer]. ANNA-7 Assessment Billing ANNA-7 Assessment Tool: ANNA-7 Assessment 73664 Review of Systems Const Denies body aches, Denies chills, Denies fever(s), Reports headache(s) and Denies poor appetite Eyes Reports no additional complaints ENT Denies dysphagia, Denies dizziness, Reports headache(s) and Denies odynophagia Card Denies chest pain, Denies syncope, Denies edema, Denies irregular heart rhythm, Denies lightheadedness and Denies dyspnea Resp Denies cough and Denies dyspnea GI Denies abdominal pain, Denies constipation, Denies dysphagia, Denies diarrhea, Denies nausea, Denies odynophagia and Denies vomiting Reports no additional complaints Musc Reports no additional complaints and Denies abnormal gait Skin/Breast Reports system reviewed and no additional complaints, except as documented Neuro Denies abnormal gait, Denies dizziness, Denies syncope and Reports headache(s) Psych Reports no additional complaints Physical exam (Primary Care) Vital Signs: Last Vital Signs Temp 96.9 F 09/12/25 09:39 Pulse 66 09/12/25 09:39 BP 136/72 09/12/25 09:39 Pulse Ox 95 09/12/25 09:39 Oxygen Delivery Method Room Air 09/12/25 09:39 BMI result Body Mass Index 33.7 Tobacco/Smoking Status: Tobacco use Status Tobacco use date assessed 06/29/25 09/12/25 09:48 Patient Tobacco Use Status Never used Tobacco 09/12/25 09:48 Tobacco use type Cigarette 09/12/25 09:48 e-Cigarette/Vaping Use Never Used 09/12/25 09:48 PHQ-9: PHQ-9 Score PHQ-9: Total score 0 09/12/25 10:03 Depression Screening Interpretation: Negative Thrive Assessment: Date of Thrive Assessment Date Thrive assessed 06/23/25 09/12/25 09:48 Currently or been in a relationship where the following occur: No concerns reported Const General: cooperative, healthy appearing, comfortable and no acute distress Orientation/consciousness: patient oriented x3 HENMT Head: Yes normocephalic Ears: hearing grossly normal bilaterally General nose exam: Normal external nose present Eyes General: appearance normal, both eyes and all related structures Conjunctivae: conjunctivae normal Neck Neck: Yes full ROM and Yes no lymphadenopathy Resp Effort & Inspection: normal respiratory effort Auscultation: clear to auscultation bilaterally, no crackles, no rales, no rhonchi and no wheezes Cardio Rate: regular rate Rhythm: regular rhythm Skin General skin exam: no rashes or lesions noted Neuro General: patient oriented x3 Cranial nerves: Yes CN's II-XII intact bilaterally Gait exam (Neuro): Normal gait present Extrem General: Yes normal to inspection, Yes full ROM and No edema Psych Affect: normal affect Attitude: cooperative Insight: Good insight present (Psych) Judgement: Good judgement present (Psych) Coding Level of Care Code Est Pt Level 3 (09026) Diagnoses Essential hypertension I10 Hypertension type: essential hypertension Hypercholesterolemia E78.00 Obesity (BMI 30-39.9) E66.9 Headache R51.9 Additional Codes ANNA-7 Assessment Billing - ANNA-7 Assessment Tool: ANNA-7 Assessment 62011 ([id number]) Assessment & Plan Assessment & Plan (1) Hypertension: Code(s): I10 - Essential (primary) hypertension Category: Medical Qualifiers: Hypertension type: essential hypertension Qualified Code(s): I10 - Essential (primary) hypertension Plan: Continue on current blood pressure medication. Avoid salt intake and encourage healthy diet and regular exercise. Blood pressure in the office today 136/72 improved since last visit with increase of Losartan. Home logs reveal elevated pressure prior to taking Losartan and normalized throughot the day. (2) Hypercholesterolemia: Code(s): E78.00 - Pure hypercholesterolemia, unspecified Category: Medical Plan: Avoid fried foods, chicken skin, eggs, butter margarine, pastries and meat. Be it pork or beef they have a lot of cholesterol LDL goal of less than 130 and triglyceride of less than 150. The patient?s LDL cholesterol is elevated at 154 mg/dL, an increase from 139 mg/dL last year, and has been persistently borderline high since 2020. Her 10-year ASCVD risk is 14.8%, which warrants starting medication. A prescription for low-dose atorvastatin once daily will be initiated. Potential side effects, such as muscle aches, were discussed, with instructions to stop the medication if they occur. The patient received counseling on dietary modifications, including avoiding red meat, fried foods, and pastries, and will be provided with an informational pamphlet. Repeat labs will be ordered in three months to assess efficacy. (3) Obesity (BMI 30-39.9): Code(s): E66.9 - Obesity, unspecified Category: Medical Plan: Healthy diet and regular exercise is encouraged. (4) Headache: Code(s): R51.9 - Headache, unspecified Category: Medical Plan: The patient reports daily headaches that start in the afternoon at the back of her neck. Given her time spent on a computer, vision-related strain from blue light is a possible trigger. It is recommended she try a blue light filter screen for her computer. Sleep apnea is also considered in the differential diagnosis for daily headaches, and a home sleep study was offered but declined today. I did also offer referral to Neurology which was declined today. I reviewed red flag symptoms and when to present for re-evaluation. She agrees to reach out to the office prior to her next visit if headaches continue. No neurological deficit on exam and denies any other associated symptoms with the headaches. Plan This note was constructed using voice recognition software. While every effort has been made to ensure accuracy and software quality manager, still areas may have been included sometimes these areas may affect the content or meeting of the given symptoms. Total time spent caring for the patient today was 20 minutes. This includes time spent before the visit reviewing the chart, time spent during the visit, and time spent after the visit and documentation. Patient was informed and verbally consented to the use of an ambient scribe for clinic note documentation during this visit. Orders: Orders Lipid Panel 3 Months E78.00 - Pure hypercholesterolemia, unspecified Medications: New atorvastatin (Lipitor) 10 mg PO DAILY 90 tabs 0RF
== END 2025-09-12 11:02 | disposition home or self-care (01) ==
LOC: HO.HMCH 09:30
PROVIDERS: PCP Internal Medicine
DX: I10 Essential (primary) hypertension (principal); E78.00 Pure hypercholesterolemia, unspecified; E66.9 Obesity, unspecified; Z68.33 Body mass index [BMI] 33.0-33.9, adult; R51.9 Headache, unspecified

== ENCOUNTER → 2025-09-12 09:29 | Outpatient (BNVA) | payer MEDICARE, SELFPAY | PROVIDERS: PCP Internal Medicine | DX: I10 Essential (primary) hypertension (principal); I73.9 Peripheral vascular disease, unspecified; E78.00 Pure hypercholesterolemia, unspecified; E66.9 Obesity, unspecified; R51.9 Headache, unspecified; Z68.33 Body mass index [BMI] 33.0-33.9, adult | CPT/HCPCS: 96127; 99212 ==